=== PATIENT | female | born 1950 | race Caucasian/White ===

== ENCOUNTER 2017-12-21 00:21 | Emergency (ER) | payer MEDICARE, OTHER ==
[~2017-12-21] VITALS: Ht 165.1 cm; Wt 83.9 kg
[~2017-12-21 00:21] MED LIST: AMOX TR-K CLV1 EAC1 PO; ASPIR 8181 MG PO; ASPIRIN EC325 MG PO; BISOPROLOL FUMAR5 MG PO; CHLORTHALIDONE25 MG PO; CINNAMON500 MG PO; CLONAZEPAM0.5 MG PO; CLONAZEPAM1 MG PO; CRESTOR20 MG PO; CYCLOBENZAPRINE10 MG PO; CYMBALTA60 MG PO; FISH OIL 1,0001 EAC2 PO; FISH OIL300 MG PO; GABAPENTIN100 MG PO; GLUCOPHAGE1000 MG PO; HYDROCODON-ACE1 EAC8 PO; LIPITOR10 MG PO; LIPITOR20 MG PO; LISINOPRIL10 MG PO; LISINOPRIL5 MG PO; METOPROLOL TART25 MG PO; METRONIDAZOLE500 MG PO; MULTI-DAY VITA1 EACH PO; NITROSTAT0.4 MG SL; NORCO 7.5-3251 EACH PO; NOVOLOG100 UNITS/ SUB-Q; OXYCODONE HCL5 MG PO; SUPER B-50 COM1 EACH PO; SYNTHROID150 MCG PO; TRAZODONE HCL50 MG PO; VITAMIN D2000 UNI1 PO
[2017-12-21] MEDS ORDERED: CEPHALEXIN500 MG PO (01:47)
[2017-12-21] MEDS ORDERED: BACTRIM DS TAB1 EACH PO (01:47)
== END 2017-12-21 02:18 | disposition home or self-care (01) ==
LOC: ED 00:21
DX: L03.116 Cellulitis of left lower limb (principal); L03.115 Cellulitis of right lower limb; I25.2 Old myocardial infarction; E11.9 Type 2 diabetes mellitus without complications; Z87.891 Personal history of nicotine dependence; Z79.899 Other long term (current) drug therapy; Z79.84 Long term (current) use of oral hypoglycemic drugs
CPT/HCPCS: 99283

== ENCOUNTER 2018-12-01 10:19 | Emergency (ER) | payer MEDICARE, OTHER ==
[~2018-12-01] VITALS: Ht 165.1 cm; Wt 85.3 kg
[~2018-12-01 10:19] MED LIST changes: +ASPIRIN EC81 MG PO; +BACTRIM DS TAB1 EACH PO; +CEPHALEXIN500 MG PO; +LEVOTHYROXINE100 MCG PO
[2018-12-01] MEDS ORDERED: COLCRYS0.6 MG PO (11:01)
[2018-12-01] MEDS ORDERED: METOPROLOL SUCC25 MG PO (11:02)
[2018-12-01] MEDS ORDERED: PEPCID40 MG PO (13:10)
[2018-12-01] MEDS ORDERED: PREDNISONE50 MG PO (13:10)
[2018-12-01] MEDS ORDERED: ZYRTEC10 MG PO (13:10)
[2018-12-01] MEDS ORDERED: HYDROCHLOROTHIA25 MG PO (14:32)
== END 2018-12-01 15:28 | disposition home or self-care (01) ==
LOC: ED 10:19
DX: T78.3XXA Angioneurotic edema, initial encounter (principal); I25.2 Old myocardial infarction; E11.9 Type 2 diabetes mellitus without complications; Z87.891 Personal history of nicotine dependence; Z88.8 Allergy status to other drugs, medicaments and biological substances; Z79.899 Other long term (current) drug therapy
CPT/HCPCS: 71045; 80053; 85025; 94640; 96365; 96375; 99285-25; 99406; J1100

== ENCOUNTER 2019-07-06 21:15 | Emergency (ER) | payer MEDICARE, OTHER ==
[~2019-07-06] VITALS: Ht 165.1 cm; Wt 96.2 kg
[~2019-07-06 21:15] MED LIST changes: +COLCRYS0.6 MG PO; +HYDROCHLOROTHIA25 MG PO; +METOPROLOL SUCC25 MG PO; +PEPCID40 MG PO; +PREDNISONE50 MG PO; +ZYRTEC10 MG PO
[2019-07-07] MEDS ORDERED: KEFLEX500 MG PO (13:17)
== END 2019-07-06 23:15 | disposition left against medical advice (07) ==
LOC: ED 21:15
DX: Z53.21 Procedure and treatment not carried out due to patient leaving prior to being seen by health care provider (principal)

== ENCOUNTER 2019-07-07 11:16 | Emergency (ER) | payer MEDICARE, OTHER ==
[~2019-07-07] VITALS: Ht 165.1 cm; Wt 96.2 kg
--- OUTSIDE RECORDS SUMMARY | 2019-07-07 11:18 | XMS ---
PreManage Notification: MARYCRUZ RIVERO Security Analytical Technician Events No recent Security Events currently on file CRITERIA MET - [facility] - 2 Visits in 30 Days CARE PROVIDERS Cash Pino Treatment Current MD PHONE: Unknown Ray has no Care Guidelines for this patient. Danny VISIT COUNT (12 MO.) 4 [facility] TOTAL 4 NOTE: Visits indicate total known visits. ED/UCC VISIT TRACKING (12 MO.) 07/07/2019 11:16 [facility] [place] TYPE: Emergency COMPLAINT: - RIGHT LEG PAIN NON INJURY 07/06/2019 21:16 [facility] [place] TYPE: Emergency COMPLAINT: - RIGHT LEG SWELLING/ NO INJURY 01/13/2019 22:05 [facility] [place] TYPE: Emergency COMPLAINT: - R LEG BITE DIAGNOSES: - Other halfway (current) drug therapy - Exposure to other specified factors, initial encounter - Presence of aortocoronary bypass graft - Acquired absence of both cervix and uterus - Nicotine dependence, cigarettes, uncomplicated - Type 2 diabetes mellitus without complications - Unspecified open wound, right thigh, initial encounter - terminologist (current) use of aspirin - Chronic obstructive pulmonary disease, unspecified - Local infection of the skin and subcutaneous tissue, unspecified - senior care (current) use of oral hypoglycemic drugs - Allergy status to other drugs, medicaments and biological substances status - Old myocardial infarction 12/01/2018 10:[address] 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
[2019-07-07] MEDS ORDERED: KEFLEX500 MG PO (13:17)
== END 2019-07-07 13:25 | disposition home or self-care (01) ==
LOC: ED 11:16
DX: L03.115 Cellulitis of right lower limb (principal); E11.9 Type 2 diabetes mellitus without complications; I25.2 Old myocardial infarction; F17.200 Nicotine dependence, unspecified, uncomplicated; Z88.8 Allergy status to other drugs, medicaments and biological substances; Z79.82 Long term (current) use of aspirin; Z79.899 Other long term (current) drug therapy
CPT/HCPCS: 93971; 99283-25

== ENCOUNTER 2019-08-14 13:37 | Emergency (ER) | payer MEDICARE, OTHER ==
[~2019-08-14] VITALS: Ht 165.1 cm; Wt 96.2 kg
--- OUTSIDE RECORDS SUMMARY | ~2019-08-14 | XMS | Encounter Summary ---
Demographics + + + | Address | [address] | | | [place] [address] | + + + | Home Phone | | + + + | Preferred Language | Unknown | + + + | Marital Status | Single | + + + | Pentecostal Affiliation | 1028 | + + + | Race | Unknown | + + + | Ethnic Group | Unknown | + + + Author + + + | Author | [facility] | | | and [place] | + + + | Organization | [facility] | | | and [place] | + + + | Address | Unknown | + + + | Phone | Unavailable | + + + Support + + +---------+ + | Name | Relationship | Address | Phone | + + +---------+ + | Kia Andujarsy | ECON | Unknown | | + + +---------+ + | Pradeep Rodas | ECON | Unknown | Unavailable | + + +---------+ + | Radha Bansal | ECON | Unknown | | + + +---------+ + Care Team Providers + +------+ + | Care Communication Analyst Name | Role | Phone | + +------+ + | Marlys Villafana | PCP | | + +------+ + Encounter Details +--------+ + + + + | Date | Type | Department | Care Team | Description | +--------+ + + + + | 05/15/ | Orders Only | [facility] | Provider, | | | 2019 | | SYSTEM GENERIC OP | [address] | | | | | [address]VERSION [address] | [place]. | | | | | [address] [place], [place] | [place] [address] | | | | | [address] | | | | | | [phone] | | | +--------+ + + + + Social History + + + +--------+------+ | Tobacco Use | Types | Packs/Day | Years | Date | | | | | Used | | + + + +--------+------+ | Current Every Day | Cigarettes | 0.5 | 48 | | | Smoker | | | | | + + + +--------+------+ + +---+---+---+ | Smokeless Tobacco: | | | | | Current User | | | | + +---+---+---+ + + | Comments: Currently using E-cigarettes | + + + + +---------+ + | Alcohol Use | Drinks/We | oz/Week | Comments | | | ek | | | + + +---------+ + | No | | | rarely | + + +---------+ + + + + | Sex Assigned at | Date Recorded | | | | + + + | Not on file | | + + + + + + + | Job Start Date | Occupation | Industry | + + + + | Not on file | Not on file | Not on file | + + + + + + + + | Travel History | Travel Start | Travel End | + + + + + + | No recent travel history available. | + + documented as of this encounter Functional Status + + + + | Functional Status | Response | Date of Assessment | + + + + | Are you deaf or do you have serious | No | 06/19/2016 | | difficulty hearing? | | | + + + + | Are you blind or do you have serious | No | 06/19/2016 | | difficulty seeing, even when wearing | | | | glasses? | | | + + + + | Do you have serious difficulty walking or | No | 06/19/2016 | | climbing stairs? (5 years old or older) | | | + + + + | Do you have difficulty dressing or bathing? | No | 06/19/2016 | | (5 years old or older) | | | + + + + | Because of a physical, mental, or emotional | No | 06/19/2016 | | condition, do you have difficulty doing | | | | errands alone such as visiting a doctor's | | | | office or shopping? [15 years old or | | | | older)] | | | + + + + + + + + | Cognitive Status | Response | Date of Assessment | + + + + | Because of a physical, mental, or emotional | No | 06/19/2016 | | condition, do you have serious difficulty | | | | concentrating, remembering, or making | | | | decisions? (5 years old or older) | | | + + + + documented as of this encounter Plan of Treatment +--------+---------+ + + + | Date | Type | Specialty | Care Team | Description | +--------+---------+ + + + | 08/18/ | Office | Orthopedic Surgery | Rainer Wilson MD | | | 2019 | Visit | | [address] | | | | | | [place], | | | | | | [place] [address] | | | | | | [phone] | | | | | | | | +--------+---------+ + + + documented as of this encounter Visit Diagnoses Not on filedocumented in this encounter"
--- OUTSIDE RECORDS SUMMARY | ~2019-08-14 | XMS | Encounter Summary ---
Demographics + + + | Address | [address] | | | [place] [address] | + + + | Home Phone | | + + + | Preferred Language | Unknown | + + + | Marital Status | Single | + + + | Methodist Affiliation | 1028 | + + + | Race | Unknown | + + + | Ethnic Group | Unknown | + + + Author + + + | Author | [facility] | | | and [place] | + + + | Organization | [facility] | | | and [...] Team Providers + +------+ + | Care Sheep Or Calf Grader Name | Role | Phone | + +------+ + | Marlys Villafana | PCP | | + +------+ + Reason for Visit + + + | Reason | Comments | + + + | Surgery Appointment | | + + + Encounter Details +--------+ + + + + | Date | Type | Department | Care Team | Description | +--------+ + + + + | 08/11/ | Telephone | [facility] | Rainer Wilson MD | Surgery Appointment | | 2019 | | [facility] | [address] | | | | | ORTHOPEDIC SPINE | [place] | | | | | [address] | [place] [address] | | | | | [place] | [phone] | | | | | [address] | | | | | | [phone] | | | +--------+ + + + [...] | Rainer Wilson MD | | | 2018 | Visit | | [address] [facility] | | | | | | [place], | | | | | | [place] [address] | | | | | | [phone] | | | | | | | | +--------+---------+ + + + documented as of this encounter Visit Diagnoses Not on filedocumented in this encounter"
--- OUTSIDE RECORDS SUMMARY | ~2019-08-14 | XMS | Encounter Summary ---
Demographics + + + | Address | [address] | | | [place] [address] | + + + | Home Phone | | + + + | Preferred Language | Unknown | + + + | Marital Status | Single | + + + | Voodoo Affiliation | 1028 | + + + | Race | Unknown | + + + | Ethnic Group | Unknown | + + + Author + + + | Author | [facility] | | | and [place] | + + + | Organization | [facility] | | | [...] Team Providers + +------+ + | Care Shellfish Dredge Operator Name | Role | Phone | + +------+ + | Marlys Villafana | PCP | | + +------+ + Encounter Details +--------+ + + + + | Date | Type | Department | Care Team | Description | +--------+ + + + + | 05/15/ | Orders Only | [facility] | Provider, | | | 2019 | | SYSTEM GENERIC OP | [address] | | | | | [address] | [place]. | | | | | [address] [place], [place] | [place] [address] | | | | | [address] | | | | | | [phone] | | | +--------+ + + + [...] | 2019 | Visit | | [address] [address] | | | | | | [place], | | | | | | [place] [address] | | | | | | [phone] | | | | | | | | +--------+---------+ + + + documented as of this encounter Visit Diagnoses Not on filedocumented in this encounter"
--- OUTSIDE RECORDS SUMMARY | ~2019-08-14 | XMS | Clinical Summary ---
Demographics + + + | Address | [address] | | | [place] [address] | + + + | Home Phone | | + + + | Preferred Language | Unknown | + + + | Marital Status | Single | + + + | Latter-Day Affiliation | 1028 | + + + | Race | Unknown | + + + | Ethnic Group | Unknown | + + + Author + + + | Author | [facility] (Historical as of | | | 06-04-19) | + + + | Organization | [facility] (Historical as of | | | 06-04-19) | + + + | Address | Unknown | + + + | Phone | Unavailable | + + + Support + + +---------+ + | Name | Relationship | Address | Phone | + + +---------+ + | Radha Bansal | ECON | Unknown | | + + +---------+ + Care Team Providers + +------+ + | Care Form Grader Operator Name | Role | Phone | + +------+ + | Marlys Villafana PA-C | PP | | + +------+ + Allergies No Known Allergies Current Medications + + +-------+---------+------+------+-------+ | Prescription | Sig. | Disp. | Refills | Star | End | Statu | | | | | | t | Date | s | | | | | | Date | | | + + +-------+---------+------+------+-------+ | chlorthalidone | Take 25 mg by mouth | | | | | Activ | | (HYGROTEN) 25 MG | daily. | | | | | e | | tablet | | | | | | | + + +-------+---------+------+------+-------+ | levothyroxine | Take 125 mcg by | | | | | Activ | | (SYNTHROID, | mouth every morning | | | | | e | | LEVOTHROID) 150 MCG | before breakfast. | | | | | | | tablet | | | | | | | + + +-------+---------+------+------+-------+ | DULoxetine | Take 60 mg by mouth | | | | | Activ | | (CYMBALTA) [address] | daily. | | | | | e | | capsule | | | | | | | + + +-------+---------+------+------+-------+ | metformin | Take 1,000 mg by | | | | | Activ | | (GLUCOPHAGE) 1000 MG | mouth 2 (two) times | | | | | e | | tablet | daily with meals. | | | | | | + + +-------+---------+------+------+-------+ | b complex vitamins | Take 1 capsule by | | | | | Activ | | capsule | mouth daily. | | | | | e | + + +-------+---------+------+------+-------+ | Multiple Vitamin | Take 1 tablet by | | | | | Activ | | (MULTIVITAMIN) | mouth daily. | | | | | e | | tablet | | | | | | | + + +-------+---------+------+------+-------+ | albuterol | Take 2.5 mg by | | | | | Activ | | (PROVENTIL) (2.5 | nebulization every 6 | | | | | e | | MG/3ML) 0.083% | (six) hours as | | | | | | | nebulizer solution | needed. | | | | | | + + +-------+---------+------+------+-------+ | Cinnamon 500 MG | Take 500 mg by mouth | | | | | Activ | | capsule | daily. | | | | | e | + + +-------+---------+------+------+-------+ | clonazePAM | Take 0.5 mg by mouth | | | | | Activ | | (KLONOPIN) 0.5 MG | 2 (two) times daily | | | | | e | | tablet | as needed. | | | | | | + + +-------+---------+------+------+-------+ | nitroGLYCERIN | Place 0.4 mg under | | | | | Activ | | (NITROSTAT) 0.4 MG | the tongue every 5 | | | | | e | | SL tablet | (five) minutes as | | | | | | | | needed. | | | | | | + + +-------+---------+------+------+-------+ | traZODone | Take 50 mg by mouth | | | | | Activ | | (DESYREL) 50 MG | nightly. | | | | | e | | tablet | | | | | | | + + +-------+---------+------+------+-------+ | gabapentin | Take 900 mg by mouth | | | | | Activ | | (NEURONTIN) 300 MG | 2 (two) times | | | | | e | | capsuleIndications: | daily. | | | | | | | Neuralgia, Pain | | | | | | | + + +-------+---------+------+------+-------+ | aspirin EC 81 MG | Take 81 mg by mouth | | | | | Activ | | EC tablet | daily with | | | | | e | | | breakfast. | | | | | | + + +-------+---------+------+------+-------+ | Cholecalciferol | Take 2,000 Units by | | | | | Activ | | (VITAMIN D3) 2000 | mouth. | | | | | e | | units TABS | | | | | | | + + +-------+---------+------+------+-------+ | fish oil omega-3 | Take 1 g by mouth | | | | | Activ | | fatty acids 1000 MG | daily. | | | | | e | | capsule | | | | | | | + + +-------+---------+------+------+-------+ | atorvastatin | TK 1 T PO QD | | 0 | 09/2 | | Activ | | (LIPITOR) 20 MG | | | | 5/20 | | e | | tablet | | | | 18 | | | + + +-------+---------+------+------+-------+ | cetirizine | TK 1 T PO QD | | 0 | 02/1 | | Activ | | (ZYRTEC) 10 MG | | | | 3/20 | | e | | tablet | | | | 19 | | | + + +-------+---------+------+------+-------+ | famotidine | TK 1 T PO QD | | 0 | 02/1 | | Activ | | (PEPCID) 40 MG | | | | 3/20 | | e | | tablet | | | | 19 | | | + + +-------+---------+------+------+-------+ | | TK 1 T PO QD | | 3 | 03/0 | | Activ | | hydrochlorothiazide | | | | 6/20 | | e | | (HYDRODIURIL) 25 MG | | | | 19 | | | | tablet | | | | | | | + + +-------+---------+------+------+-------+ | | | | 0 | 04/2 | | Activ | | HYDROcodone-acetamin | | | | 6/20 | | e | | ophen (NORCO) | | | | 19 | | | | 7.5-325 MG per | | | | | | | | tablet | | | | | | | + + +-------+---------+------+------+-------+ | metoprolol | TK 1 T PO QD | | 3 | 05/0 | | Activ | | (TOPROL-XL) 50 MG 24 | | | | 7/20 | | e | | hr tablet | | | | 19 | | | + + +-------+---------+------+------+-------+ | oxyCODONE | Take 5-10 mg by | | | 12/2 | | Activ | | (ROXICODONE) 5 MG | mouth. | | | 8/20 | | e | | immediate release | | | | 16 | | | | tablet | | | | | | | + + +-------+---------+------+------+-------+ Active Problems + + + | Problem | Noted Date | + + + | Postlaminectomy syndrome, lumbar region | 06/22/2018 | + + + + + | Overview: Added automatically from request for surgery [id number] | + + + + + | Lumbosacral radiculopathy | 06/22/2018 | + + + + + | Overview: Added automatically from request for surgery [id number] | + + + + + | Lumbar radiculopathy | 05/25/2018 | + + + + + | Overview: Added automatically from request for surgery [id number] | + + + + + | Lumbar postlaminectomy syndrome | 05/25/2018 | + + + + + | Overview: Added automatically from request for surgery [id number] | + + + + + | Radiculopathy, lumbosacral region | 05/25/2018 | + + + + + | Overview: Added automatically from request for surgery [id number] | + + + + + | Degenerative lumbar spinal stenosis | 01/29/2018 | + + + | Pain in lower extremity due to sciatica | 06/11/2016 | + + + | CAD (coronary artery disease) | 12/23/2013 | + + + | Tobacco abuse | 12/23/2013 | + + + | Jaw pain | 12/23/2013 | + + + | Aspiration pneumonia (HCC) | 04/03/2013 | + + + | C. difficile colitis | 04/03/2013 | + + + | S/P CABG x 5 | 04/02/2013 | + + + | Emily - Márquez tear | 04/02/2013 | + + + | Methamphetamine abuse (HCC) | 03/30/2013 | + + + | NSTEMI (non-ST elevated myocardial infarction) | 03/28/2013 | + + + | Diabetes mellitus (HCC) | 03/28/2013 | + + + | Thyroid disease | 03/28/2013 | + + + | Renal insufficiency | 03/28/2013 | + + + | CAD (coronary artery disease), tolowa dee-ni' coronary artery | 03/28/2013 | + + + | Atherosclerosis of abdominal aorta (HCC) | 03/28/2013 | + + + | PVD (peripheral vascular disease) | 03/28/2013 | + + + | OLVIN (acute kidney injury) | 03/28/2013 | + + + Resolved Problems + + + + | Problem | Noted | Resolved | | | Date | Date | + + + + | Pneumonia | 04/05/20 | | | | 13 | 3 | + + + + | Nvdms-rn-wsgkygk respiratory failure | 03/30/20 | | | | 13 | 3 | + + + + | Arrhythmia | 03/28/20 | | | | 13 | 3 | + + + + | Pulmonary edema | 03/28/20 | | | | 13 | 3 | + + + + | Hypokalemia | 03/28/20 | | | | 13 | 3 | + + + + | Hypomagnesemia | 03/28/20 | | | | 13 | 3 | + + + + Immunizations + + + + | Name | Dates Previously Given | Next Due | + + + + | Influenza, PF | 08/02/2013 | | | Recombinant, | | | | Trivalent (Flublok) | | | + + + + | Pneumococcal | 07/19/2011 | | | Polysaccharide | | | | 23-valent | | | + + + + Family History + + +------+ + | Medical History | Relation | Name | Comments | + + +------+ + | Colon polyps | Brother | | | + + +------+ + | Heart disease | Brother | | | + + +------+ + | Alcohol abuse | Father | | | + + +------+ + | Cancer | Father | | protate | + + +------+ + | Colon polyps | Father | | | + + +------+ + | Heart attack | Father | | | + + +------+ + | Heart disease | Father | | | + + +------+ + | Heart disease | Mother | | | + + +------+ + | Alcohol abuse | Sister | | | + + +------+ + | Malig hypertherm | Neg Hx | | | + + +------+ + + +------+ + + | Relation | Name | Status | Comments | + +------+ + + | Brother | | Alive | | + +------+ + + | Father | | | | + +------+ + + | Mother | | | | + +------+ + + | Sister | | | | + +------+ + + Social History + +-------+ +--------+------+ | Tobacco Use | Types | Packs/Day | Years | Date | | | | | Used | | + +-------+ +--------+------+ | Current Every Day | | 0.5 | 40 | | | Smoker | | | | | + +-------+ +--------+------+ + +---+---+---+ | Smokeless Tobacco: | | | | | Never Used | | | | + +---+---+---+ + + | Tobacco Cessation: Ready to Quit: No | + + + + +---------+ + | Alcohol Use | Drinks/We | oz/Week | Comments | | | ek | | | + + +---------+ + | No | | | | + + +---------+ + + + + | Sex Assigned at | Date Recorded | | | | + + + | Not on file | | + + + Last Filed Vital Signs + + + + | Vital Sign | Reading | Time Taken | + + + + | Blood Pressure | 133/79 | 04/13/2019 3:11 PM PDT | + + + + | Pulse | 94 | 04/13/2019 3:11 PM PDT | + + + + | Temperature | 36.8 C (98.2 F) | 07/21/2018 1:51 PM PDT | + + + + | Respiratory Rate | 20 | 07/21/2018 2:15 PM PDT | + + + + | Oxygen Saturation | 95% | 04/13/2019 3:11 PM PDT | + + + + | Inhaled Oxygen | - | - | | Concentration | | | + + + + | Weight | 92.2 kg (203 lb 4.2 | 04/13/2019 3:11 PM PDT | | | oz) | | + + + + | Height | 165.1 cm (5' 5") | 04/13/2019 3:11 PM PDT | + + + + | Body Mass Index | 33.82 | 04/13/2019 3:11 PM PDT | + + + + Plan of Treatment + + + + + | Health Maintenance | Due Date | Last Done | Comments | + + + + + | Diabetic Eye Exam | | | | | | 9 | | | + + + + + | Diabetic Foot Exam | | | | | | 9 | | | + + + + + | Microalbumin | | | | | Screening | 9 | | | + + + + + | Vaccine: | | | | | Dtap/Tdap/Td (1 - | 8 | | | | Tdap) | | | | + + + + + | Breast Cancer | | | | | Screening | 9 | | | | (Mammogram) | | | | + + + + + | Colon Cancer | | | | | Screening | 9 | | | | (Colonoscopy) | | | | + + + + + | Vaccine: Zoster (1 | | | | | of 2) | 9 | | | + + + + + | DEXA SCAN SCREENING | | | | | | 4 | | | + + + + + | Vaccine: | | 07/19/2011 | | | Pneumococcal 65+ | 4 | | | | Low/Medium Risk (1 | | | | | of 2 - PCV13) | | | | + + + + + | Hemoglobin A1c | | 12/24/2013, 04/01/2013, | | | | 4 | 03/29/2013 | | + + + + + | Vaccine: Influenza | | 08/02/2013 | | | (#1) | 9 | | | + + + + + Implants + +------+-------+ +--------+--------+--------+ | Implanted | Type | Area | Manufacture | Device | Expira | Model | | | | | r | | tion | / | | | | | | Identi | Date | Serial | | | | | | fier | | / Lot | + +------+-------+ +--------+--------+--------+ | Pacing Wire Dual | | N/A: | | | 06/18/ | 030-00 | | 030-005 - | | Heart | | | 2016 | 5 | | [id number]: Qty: 1 on | | | | | | / | | 03/30/2013 by Vickie, | | | | | | 155 | | MD Angel | | | | | | | + +------+-------+ +--------+--------+--------+ | Pacing Wire Dual | | N/A: | | | 10/18/ | 030-00 | | 030-005 - | | Heart | | | 2016 | 5 | | [id number]: Qty: 1 on | | | | | | / | | 03/30/2013 by Vickie, | | | | | | | | MD Angel | | | | | | | + +------+-------+ +--------+--------+--------+ | Stim Nrv Lead Octrode 60cm - | | N/A: | [facility] | | 02/10/ | 3086 | | [id number]: Qty: 1 on | | Back | MEDICAL - | | 2019 | /[id number] | | 07/21/2018 by Shahrzad, | | | PEDRO | | | 614 | | DO Atif | | | | | | /NA | + +------+-------+ +--------+--------+--------+ | Stim Nrv Lead Octrode 60cm - | | N/A: | [facility] | | 12/01/ | [id number] | | [id number]: Qty: 1 on | | Back | MEDICAL - | | 2020 | S | | 07/21/2018 by Shahrzad, | | | PEDRO | | | /[id number] | | DO Atif | | | | | | 325 | | | | | | | | /NA | + +------+-------+ +--------+--------+--------+ Results Not on filefrom Last 3 Months Insurance + +--------+ +--------+-------+ + | Payer | Benefi | Subscriber | Type | Phone | Address | | | t Plan | ID | | | | | | / | | | | | | | Group | | | | | + +--------+ +--------+-------+ + | MEDICARE | MEDICA | [id number] | | | [address] | | | RE | | | | [place] [address] | | | IP-OP | | | | | + +--------+ +--------+-------+ + | [employer] | [employer] | [id number] | Indemn | | | | | AMERIC | | ity | | | | | AN | | | | | + +--------+ +--------+-------+ + + +--------+ +--------+ + + | Guarantor Name | Accoun | Relation to | Date | Phone | Billing Address | | | t Type | Patient | of | | | | | | | | | | + +--------+ +--------+ + + | ANTONIA ALMANZA | Person | Self [birth year] Home: | [address] | | | al/Fam | | 1950 | [phone] | [place] | | | nasim | | | [phone] | [phone] | + +--------+ +--------+ + +
--- OUTSIDE RECORDS SUMMARY | ~2019-08-14 | XMS | Encounter Summary ---
Demographics + + + | Address | [address] | | | [place] [address] | + + + | Home Phone | | + + + | Preferred Language | Unknown | + + + | Marital Status | Single | + + + | Hinduism Affiliation | 1028 | + + + | Race | Unknown | + + + | Ethnic Group | Unknown | + + + Author + + + | Author | [facility] | | | and [place] | + + + | Organization | [facility] | | | [...] Team Providers + +------+ + | Care Compliance Attorney Name | Role | Phone | + [...] 2019 | | [facility] | [address] | | | | | [facility] | [place] | | | | | [address] | [place] [address] | | | | | [place] | [phone] | | | | | [address] | | | | | | [phone] | | | +--------+ + + + [...] | 2018 | Visit | | [address] [facility] | | | | | | [place], | | | | | | [place] [address] | | | | | | [phone] | | | | | | | | +--------+---------+ + + + documented as of this encounter Visit Diagnoses Not on filedocumented in this encounter"
--- OUTSIDE RECORDS SUMMARY | ~2019-08-14 | XMS | Clinical Summary ---
Demographics + + + | Address | [address] | | | [place] [address] | + + + | Home Phone | | + + + | Preferred Language | Unknown | + + + | Marital Status | Single | + + + | Buddhism Affiliation | 1028 | + + + | Race | Unknown | + + + | Ethnic Group | Unknown | + + + Author + + + | Author | [facility] | | | and [place] | + + + | Organization | [facility] | | | and [...] Team Providers + +------+ + | [facility] [place] Mail [facility] Name | Role | Phone | + +------+ + | Marlys Villafana | PCP | | + +------+ + Allergies No Known Allergies Medications + + + +---------+------+------+-------+ | Medication | Sig | Dispensed | Refills | Star | End | Statu | | | | | | t | Date | s | | | | | | Date | | | + + + +---------+------+------+-------+ | Cinnamon 500 MG | Take 500 mg by mouth | | 0 | 09/1 | | Activ | | CAPS | Daily. | | | 320 | | e | | | | | | 12 | | | + + + +---------+------+------+-------+ | DULoxetine | Take 60 mg by mouth | | 0 | 09/1 | | Activ | | (CYMBALTA) 60 MG | Daily. | | | 3/20 | | e | | capsule | | | | 12 | | | + + + +---------+------+------+-------+ | chlorthalidone 25 | Take 25 mg by mouth | | 0 | 09/1 | | Activ | | mg tablet | Daily. | | | 3/20 | | e | | | | | | 12 | | | + + + +---------+------+------+-------+ | multivitamin | daily | | 0 | 09/1 | | Activ | | (THERAGRAN) per | | | | 3/20 | | e | | tablet | | | | 12 | | | + + + +---------+------+------+-------+ | Berkley-3 Fatty | take 2 capsules | | 0 | 09/1 | | Activ | | Acids (FISH OIL | daily | | | 3/20 | | e | | CONCENTRATE) 1000 MG | | | | 12 | | | | CAPS | | | | | | | + + + +---------+------+------+-------+ | Cholecalciferol | Take 2,000 Units by | | 0 | 09/1 | | Activ | | (VITAMIN D) 2000 | mouth Daily. | | | 3/20 | | e | | UNITS CAPS | | | | 12 | | | + + + +---------+------+------+-------+ | metFORMIN | Take 1,000 mg by | | 0 | 06/19 | | Activ | | (GLUCOPHAGE) 500 mg | mouth 2 times daily | | | 3/ | | e | | tablet | (with breakfast & | | | 12 | | | | | dinner). | | | | | | + + + +---------+------+------+-------+ | traZODone | Take 50 mg by mouth | | 0 | / | | Activ | | (DESYREL) 50 mg | nightly. | | | 0/20 | | e | | tablet | | | | 13 | | | + + + +---------+------+------+-------+ | bisoprolol | Take 2.5 mg by mouth | | 0 | / | | Activ | | (ZEBETA) 5 mg tablet | 2 times daily. | | | / | | e | | | | | | 13 | | | + + + +---------+------+------+-------+ | atorvaSTATin | Take 20 mg by mouth | | 0 | / | | Activ | | (LIPITOR) 20 mg | nightly. | | | 0/20 | | e | | tablet | | | | 13 | | | + + + +---------+------+------+-------+ | nitroglycerin | Place 0.4 mg under | | 0 | | | Activ | | (NITROSTAT) 0.4 mg | the tongue every 5 | | | | | e | | SL tablet | minutes as needed. | | | | | | + + + +---------+------+------+-------+ | lisinopril | Take 5 mg by mouth | | 0 | 09/1 | | Activ | | (PRINIVIL, ZESTRIL) | Daily. | | | 3/20 | | e | | 10 mg tablet | | | | 12 | | | + + + +---------+------+------+-------+ | levothyroxine | Take 100 mcg by | | 0 | 09/1 | | Activ | | (SYNTHROID) 150 mcg | mouth every morning | | | 3/20 | | e | | tablet | (before breakfast). | | | 12 | | | + + + +---------+------+------+-------+ | B Complex CAPS | Daily. | | 0 | 09/1 | | Activ | | | | | | 3/20 | | e | | | | | | 12 | | | + + + +---------+------+------+-------+ | albuterol | Inhale 2 puffs into | 1 | 0 | 01/1 | | Activ | | (VENTOLIN HFA) 90 | the lungs every 4 | Inhaler | | 0/20 | | e | | mcg/puff | hours as needed for | | | 14 | | | | inhalerIndications: | Shortness of Breath. | | | | | | | COPD (chronic | | | | | | | | obstructive | | | | | | | | pulmonary disease) | | | | | | | | (HCC) | | | | | | | + + + +---------+------+------+-------+ | clonazePAM | Take 1 mg by mouth | | 0 | 09/1 | | Activ | | (KLONOPIN) 0.5 mg | nightly as needed. | | | 3/20 | | e | | tablet | | | | 12 | | | + + + +---------+------+------+-------+ | gabapentin | Take 600 mg by mouth | | 0 | 09/1 | | Activ | | (NEURONTIN) 300 mg | 3 times daily. 1 | | | 0/20 | | e | | capsule | pill in the am, 1 | | | 14 | | | | | pill at noon, and 2 | | | | | | | | pills at night. | | | | | | + + + +---------+------+------+-------+ | lactulose 10 g/15 | Take 30 mLs by mouth | 240 mL | 2 | 09/0 | | Activ | | mL solution | 2 times daily. For | | | 1/20 | | e | | | constipation | | | 16 | | | + + + +---------+------+------+-------+ | diazePAM (VALIUM) | Take 1 tablet by | 75 | 0 | 12/0 | | Activ | | 5 mg tablet | mouth every 6 hours | tablet | | 3/20 | | e | | | as needed. | | | 16 | | | + + + +---------+------+------+-------+ | | Take 1-2 tablets by | 120 | 0 | 12/2 | | Activ | | HYDROcodone-acetamin | mouth every 6 hours | tablet | | 3/20 | | e | | ophen (NORCO) 10-325 | as needed for Pain. | | | 16 | | | | mg per tablet | | | | | | | + + + +---------+------+------+-------+ | oxyCODONE | Take 1-2 tablets by | 120 | 0 | 12/2 | | Activ | | (ROXICODONE) 5 mg | mouth every 6 hours | tablet | | 8/20 | | e | | tablet | as needed for Pain. | | | 16 | | | + + + +---------+------+------+-------+ | aspirin 81 mg EC | Take 81 mg by mouth | | 0 | | | Activ | | tablet | daily with | | | | | e | | | breakfast. | | | | | | + + + +---------+------+------+-------+ | cetirizine | TK 1 T PO QD | | 0 | 02/1 | | Activ | | (ZYRTEC) 10 mg | | | | 3/20 | | e | | tablet | | | | 19 | | | + + + +---------+------+------+-------+ | famotidine | TK 1 T PO QD | | 0 | 02/1 | | Activ | | (PEPCID) 40 MG | | | | 3/20 | | e | | tablet | | | | 19 | | | + + + +---------+------+------+-------+ | | TK 1 T PO QD | | 0 | 03/0 | | Activ | | hydroCHLOROthiazide | | | | 6/20 | | e | | 25 mg tablet | | | | 19 | | | + + + +---------+------+------+-------+ | metoprolol | TK 1 T PO QD | | 0 | 05/0 | | Activ | | succinate | | | | 7/20 | | e | | (TOPROL-XL) 50 mg 24 | | | | 19 | | | | hr tablet | | | | | | | + + + +---------+------+------+-------+ | albuterol 2.5 mg/3 | Take 2.5 mg by | | 0 | | | Activ | | mL nebulizer | nebulization every 6 | | | | | e | | solution | (six) hours as | | | | | | | | needed. | | | | | | + + + +---------+------+------+-------+ | cholecalciferol | Take 2,000 Units by | | 0 | | | Activ | | (CHOLECALCIFEROL) | mouth. | | | | | e | | 2000 units TABS | | | | | | | + + + +---------+------+------+-------+ | | | | 0 | 04/2 | | Activ | | HYDROcodone-acetamin | | | | 6/20 | | e | | ophen (NORCO) | | | | 19 | | | | 7.5-325 mg per | | | | | | | | tablet | | | | | | | + + + +---------+------+------+-------+ | metFORMIN | Take 1,000 mg by | | 0 | | | Activ | | (GLUCOPHAGE) 1000 MG | mouth 2 (two) times | | | | | e | | tablet | daily with meals. | | | | | | + + + +---------+------+------+-------+ | Multiple Vitamin | Take 1 tablet by | | 0 | | | Activ | | (MULTIVITAMIN) | mouth daily. | | | | | e | | tablet | | | | | | | + + + +---------+------+------+-------+ Active Problems + + + | Problem | Noted Date | + + + | Postlaminectomy syndrome of lumbar region | 05/25/2018 | + + + + + | Overview: Overview: | | Added automatically from request for surgery [id number] | | Overview: | | Added automatically from request for surgery [id number] | + + + + + | Radiculopathy, lumbosacral region | 05/25/2018 | + + + + + | Overview: Overview: | | Added automatically from request for surgery [id number] | | Overview: | | Added automatically from request for surgery [id number] | + + + + + | Degenerative lumbar spinal stenosis | 01/29/2018 | + + + | Pain in lower extremity due to sciatica | 06/11/2016 | + + + | Unstable angina | 04/03/2016 | + + + | S/P CABG x 5 | 04/03/2016 | + + + | Jaw pain | 12/23/2013 | + + + | Tobacco abuse | 12/23/2013 | + + + | Nocturnal oxygen desaturation | 12/06/2013 | + + + | Aspiration pneumonia | 04/03/2013 | + + + | C. difficile colitis | 04/03/2013 | + + + | Emily-Márquez tear | 04/02/2013 | + + + | Methamphetamine abuse | 03/30/2013 | + + + | OLVIN (acute kidney injury) | 03/28/2013 | + + + | Atherosclerosis of abdominal aorta | 03/28/2013 | + + + | CAD (coronary artery disease), [place] coronary artery | 03/28/2013 | + + + | NSTEMI (non-ST elevated myocardial infarction) | 03/28/2013 | + + + | Renal insufficiency syndrome | 03/28/2013 | + + + | Thyroid disease | 03/28/2013 | + + + | PVD (peripheral vascular disease) | 03/28/2013 | + + + | BURSITIS, HIP | 06/25/2012 | + + + | SHOULDER PAIN | | + + + | KNEE PAIN | | + + + | PAIN IN SOFT TISSUES OF LIMB | | + + + | DIABETES MELLITUS | | + + + | DEGENERATIVE DISC DISEASE, LUMBAR SPINE | | + + + | BACK PAIN, LUMBAR | | + + + | OSTEOARTHRITIS, LUMBOSACRAL SPINE | | + + + | OSTEOARTHRITIS, KNEE | | + + + | LUMBAR RADICULOPATHY | | + + + | CHRONIC KIDNEY DISEASE UNSPECIFIED | | + + + + + | Overview: ICD-10 Record update | + + + +---+ | BACK PAIN | | + +---+ | DEGENERATIVE JOINT DISEASE | | + +---+ | SPINAL STENOSIS, LUMBAR | | + +---+ | NICOTINE ADDICTION | | + +---+ | DIABETIC PERIPHERAL NEUROPATHY | | + +---+ | NATALI (obstructive sleep apnea) | | + +---+ | ASCVD (arteriosclerotic cardiovascular disease) | | + +---+ | Atrial fibrillation | | + +---+ | HBP (high blood pressure) | | + +---+ | Anxiety | | + +---+ | Hypercholesterolemia | | + +---+ | Diabetic neuropathy | | + +---+ | Hypothyroidism | | + +---+ | Drug abuse | | + +---+ + + | Overview: cocaine and methamphetamine | + + + +---+ | Cigarette smoker | | + +---+ | COPD (chronic obstructive pulmonary disease) | | + +---+ | Heart attack | | + +---+ | Diverticulitis | | + +---+ | Arthritis | | + +---+ | Sleep apnea | | + +---+ | Neuropathy | | + +---+ | Depression | | + +---+ Encounters +--------+ + + + + | Date | Type | Specialty | Care Team | Description | +--------+ + + + + | 08/11/ | Telephone | Orthopedic Surgery | Rainer Wilson MD | Surgery Appointment | | 2018 | | | | | +--------+ + + + + | 05/15/ | Orders Only | | Provider, | | | 2018 | | | MD Chivo | | +--------+ + + + + from Last 3 Months Immunizations + + + + | Name | Dates Previously Given | Next Due | + + + + | INFLUENZA PF 17 Y OR | 08/02/2013 | | | >,TRIVALENT | | | | RECOMBINANT | | | + + + + | PNEUMOCOCCAL | 07/19/2011 | | | POLYSACCHARIDE | | | | 23-VALENT (PPSV23) | | | + + + + Family History + + +------+ + | Medical History | Relation | Name | Comments | + + +------+ + | Arthritis | Brother | | | + + +------+ + | Coronary artery | Brother | | | | disease | | | | + + +------+ + | Colon polyps | Brother | | | + + +------+ + | Heart disease | Brother | | | + + +------+ + | Hypertension | Brother | | | + + +------+ + | Seizures | Brother | | | + + +------+ + | Alcohol abuse | Father | | | + + +------+ + | COPD | Father | | | + + +------+ + | Cancer | Father | | protate | + + +------+ + | Colon polyps | Father | | | + + +------+ + | Dementia | Father | | | + + +------+ + | Heart attack | Father | | | + + +------+ + | Heart disease | Father | | | + + +------+ + | Prostate cancer | Father | | | + + +------+ + | Sleep apnea | Father | | | + + +------+ + | Arthritis | Mother | | | + + +------+ + | Heart disease | Mother | | | + + +------+ + | Hypertension | Mother | | | + + +------+ + | Heart disease | Other | | Uncle | + + +------+ + | Other (see comment) | Other | | back or neck problems: Mother and Sister | + + +------+ + | Alcohol abuse | Sister | | | + + +------+ + | Bipolar disorder | Sister | | | + + +------+ + | Depression | Sister | | | + + +------+ + | Alcohol abuse | Sister | | | + + +------+ + | Arthritis | Sister | | Rheumatoid arthritis | + + +------+ + | Malig hypertherm | Neg Hx | | | + + +------+ + + +------+ + + | Relation | Name | Status | Comments | + +------+ + + | Brother | | Alive | | + +------+ + + | Brother | | Alive | | + +------+ + + | Brother | | | | + +------+ + + | Father | | | | + +------+ + + | Father | | | | + +------+ + + | Mother | | | | + +------+ + + | Mother | | | | + +------+ + + | Other | | | | + +------+ + + | Sister | | | | + +------+ + + | Sister | | | | + +------+ + + | Sister | | | | + +------+ + + | Sister | | Alive | | + +------+ + + Social History + + + [...] recent travel history available. | + + Last Filed Vital Signs + + + + | Vital Sign | Reading | Time Taken | + + + + | Blood Pressure | 133/79 | 04/13/20191511 PDT | + + + + | Pulse | 94 | 04/13/20191511 PDT | + + + + | Temperature | 36.8 C (98.2 F) | 07/22/20181119 PDT | + + + + | Respiratory Rate | 20 | 07/22/20181119 PDT | + + + + | Oxygen Saturation | 85% | 06/19/2016805 PDT | + + + + | Inhaled Oxygen | - | - | | Concentration | | | + + + + | Weight | 92.2 kg (203 lb 4.2 | 04/13/20191511 PDT | | | oz) | | + + + + | Height | 165.1 cm (5' 5") | 04/13/20191511 PDT | + + + + | Body Mass Index | 33.82 | 04/13/20191511 PDT | + + + + Plan of Treatment +--------+---------+ + + + | Date | Type | Specialty | Care Team | Description | +--------+---------+ + + + | 08/18/ | Office | Orthopedic Surgery | Rainer Wilson MD | | | 2019 | Visit | | [address] [facility] | | | | | | [place], | | | | | | [place] [address] | | | | | | [phone] | | | | | | | | +--------+---------+ + + + + + + + + | Health Maintenance | Due Date | Last Done | Comments | + + + + + | Hepatitis C | | | | | Screening | 9 | | | + + + + + | Diabetic Eye Exam | | | | | | 7 | | | + + + + + | Diabetic Foot Exam | | | | | | 7 | | | + + + + + | Vaccine: | | | | | Dtap/Tdap/Td (1 - | 8 | | | | Tdap) | | | | + + + + + | Colorectal Cancer | | | | | Screening | 9 | | | | (Colonoscopy) | | | | + + + + + | Vaccine: Zoster (1 | | | | | of 2) | 9 | | | + + + + + | Breast Cancer | | 04/06/2009 | | | Screening | 1 | | | + + + + + | Vaccine: | | 07/19/2011 | | | Pneumococcal 65+ | 4 | | | | Low/Medium Risk (1 | | | | | of 2 - PCV13) | | | | + + + + + | Hemoglobin A1c | | 12/24/2013 | | | Screening | 4 | | | + + + + + | Adult Annual | | | | | Wellness Visit | 9 | | | + + + + + | Statin Therapy | | | | | (optimal intensity) | 9 | | | + + + + + | Vaccine: Influenza | | 08/02/2013 | | | (#1) | 9 | | | + + + + + Implants + +--------+--------+ +--------+--------+--------+ | Implanted | Type | Area | Manufacture | Device | Shelf | Model | | | | | r | | Expira | / | | | | | | Identi | tion | Serial | | | | | | fier | Date | / Lot | + +--------+--------+ +--------+--------+--------+ | Chips Can 5cc 1.7-10mm Fd - | Bone | N/A: | MUSCULOSKEL | | 01/08/ | [id number] | | [id number]: Qty: 1 | | Spine | ETAL | | 2020 | | | on 06/16/2016 by Levon, | | Lumbar | TRANSPLA - | | | /[id number] | | Bennett Osei DO | | | MUSC | | | 7-039 | | | | | | | | / | + +--------+--------+ +--------+--------+--------+ | Imp Spn Spcr Cpstn 7x22mm - | Generi | N/A: | SOFAMOR | | 03/29/ | [id number] | | [id number]: Qty: 1 on | c | Spine | DANEK - DIV | | 2022 | 2 / | | 06/16/2016 by Bennett Dos Santos | | Lumbar | MEDTRONIC | | | /[id number] | | DO Farnaz | | | - SFDK | | | 686 | + +--------+--------+ +--------+--------+--------+ | Chris Sextant Ccm [id number] - | Generi | N/A: | MEDTRONIC - | | | [id number] | | [id number]: Qty: 2 on | c | Spine | MEDT | | | 5100 / | | 06/16/2016 by Bennett Dos Santos | | Lumbar | | | | / | | DO Farnaz | | | | | | | + +--------+--------+ +--------+--------+--------+ | Graft Infuse Bone Kit Xxs - | Graft | N/A: | SOFAMOR | | 05/18/ | [id number] | | [id number]: Qty: 1 on | | Spine | DANEK - DIV | | 2017 | 0 / | | 06/16/2016 by Bennett Dos Santos | | Lumbar | MEDTRONIC | | | /[id number] | | DO Farnaz | | | - SFDK | | | [id number] | + +--------+--------+ +--------+--------+--------+ | Putty Elio 5cc Dbm - | Graft | N/A: | [employer]IC - | | 02/18/ | 48547 | | [id number]: Qty: 1 | | Spine | MEDT | | 2019 | /[id number] | | on 06/16/2016 by Levon, | | Lumbar | | | | 7-035 | | Bennett Osei DO | | | | | | / | + +--------+--------+ +--------+--------+--------+ | Screw 4.75 Xtb Jonas Mas | Screw | N/A: | MEDTR[employer]IC - | | | [id number] | | 6.5x60 - [id number]: | | Spine | MEDT | | | 49641 | | Qty: 1 on 06/16/2016 by | | Lumbar | | | | / / | | Bennett Dos Santos DO | | | | | | | + +--------+--------+ +--------+--------+--------+ | Screw 4.75 Xtb Jonas Mas | Screw | N/A: | [employer] - | | | 014175 | | 6.5x55 - [id number]: | | Spine | MEDT | | | 69311 | | Qty: 1 on 06/16/2016 by | | Lumbar | | | | / / | | Bennett Dos Santos DO | | | | | | | + +--------+--------+ +--------+--------+--------+ | Screw 4.75 Xtb Jonas Mas | Screw | N/A: | [employer] - | | | 435279 | | 7.5x60 - [id number]: | | Spine | MEDT | | | 56515 | | Qty: 1 on 06/16/2016 by | | Lumbar | | | | / / | | Bennett Dos Santos DO | | | | | | | + +--------+--------+ +--------+--------+--------+ | Screw 4.75 Xtb Jonas Mas | Screw | N/A: | [employer] - | | | 068374 | | 8.5x60 - [id number]: | | Spine | MEDT | | | 04767 | | Qty: 3 on 06/16/2016 by | | Lumbar | | | | / / | | Bennett Dos Santos DO | | | | | | | + +--------+--------+ +--------+--------+--------+ | Screw Set Slra Perc Ti 4.75 - | Screw | N/A: | [employer] - | | | 977856 | | [id number]: Qty: 6 | | Spine | MEDT | | | 0 / / | | on 06/16/2016 by Levon, | | Lumbar | | | | | | Bennett Osei DO | | | | | | | + +--------+--------+ +--------+--------+--------+ | Pacing Wire Dual | | N/A: | | | 06/18/ | 030-00 | | 030-005 - | | Heart | | | 2017 | 5 | | [id number]: Qty: 1 on | | | | | | /[id number] | | 03/30/2013 | | | | | | 5 /155 | + +--------+--------+ +--------+--------+--------+ | Pacing Wire Dual | | N/A: | | | 10/18/ | 030-00 | | 030-005 - | | Heart | | | 2017 | 5 | | [id number]: Qty: 1 on | | | | | | /[id number] | | 03/30/2013 | | | | | | 5 /156 | + +--------+--------+ +--------+--------+--------+ | Graft Infuse Bone Kit Xs - | | | SOFAMOR | | 11/18/ | 189538 | | [id number]: Qty: 1 on | | | DANEK - DIV | | 2014 | 0 / | | 01/31/2014 by Bennett Dos Santos | | | [employer] | | | /[id number] | | A, DO | | | - SFDK | | | [id number] | + +--------+--------+ +--------+--------+--------+ | RodImplanted: Qty: 1 on | | N/A: | [employer] - | | | [id number] | | 01/31/2014 by Bennett Dos Santos | | Spine | MEDT | | | 5100 / | | A, DO | | Lumbar | | | | / | + +--------+--------+ +--------+--------+--------+ | Screw Jonas Solera 6.5x55mm - | | N/A: | SOFAMOR | | | [id number] | | [id number]: Qty: 1 on | | Spine | DANEK - DIV | | | 55819 | | 01/31/2014 by Bennett Dos Santos | | Lumbar | [employer] | | | / / | | DO Farnaz | | | - SFDK | | | | + +--------+--------+ +--------+--------+--------+ | Cannulated ScrewImplanted: | | N/A: | [employer] - | | | [id number] | | Qty: 1 on 01/31/2014 by | | Spine | MEDT | | | 15396 | | Bennett Dos Santos DO | | Lumbar | | | | / / | + +--------+--------+ +--------+--------+--------+ | Cannulated ScrewImplanted: | | N/A: | [employer] - | | | [id number] | | Qty: 2 on 01/31/2014 by | | Spine | MEDT | | | 86852 | | Bennett Dos Santos DO | | Lumbar | | | | / / | + +--------+--------+ +--------+--------+--------+ | Cannulated ScrewImplanted: | | N/A: | [employer] - | | | [id number] | | Qty: 1 on 01/31/2014 by | | Spine | MEDT | | | 80442 | | Bennett Dos Santos DO | | Lumbar | | | | / / | + +--------+--------+ +--------+--------+--------+ | Cannulaed ScrewImplanted: | | | | | | [id number] | | Qty: 1 on 01/31/2014 | | | | | | 6555 / | | | | | | | | / | + +--------+--------+ +--------+--------+--------+ | Graft Infuse Bone Kit Xxs - | | | SOFELEAZAROR | | 11/18/ | [id number] | | [id number]: Qty: 1 on | | | TWILA - DIV | | 2014 | 0 / | | 01/31/2014 by Bennett Dos Santos | | | [employer]IC | | | /[id number] | | DO Farnaz | | | - SFDK | | | [id number] | + +--------+--------+ +--------+--------+--------+ | Chips Cancellous 15cc - | | | OSTEOTECH - | | 11/09/ | [id number] | | [id number]: Qty: 1 | | | OSTT | | 2018 | | | on 01/31/2014 by Levon, | | | | | | /[id number] | | Bennett Osei DO | | | | | | 8-017 | | | | | | | | / | + +--------+--------+ +--------+--------+--------+ | Chips Cancellous 15cc - | | | OSTEOTECH - | | 07/20/ | [id number] | | [id number]: Qty: 1 | | | OSTT | | 2017 | | | on 01/31/2014 by Levon, | | | | | | /[id number] | | Bennett Osei DO | | | | | | 5-045 | | | | | | | | / | + +--------+--------+ +--------+--------+--------+ | Set Scrw Ns G5 Brk Off Ti | | | SOFAMOR | | | [id number] | | 4.75 - [id number]: | | | DANEK - DIV | | | 0 / / | | Qty: 6 on 01/31/2014 by | | | [employer] | | | | | Bennett Dos Santos DO | | | - SFDK | | | | + +--------+--------+ +--------+--------+--------+ | Imp Spn Spcr Cpstn 8x26mm - | | | SOFAMOR | | 07/21/ | [id number] | | [id number]: Qty: 1 on | | | DANEK - DIV | | 2020 | 6 / | | 01/31/2014 by Bennett Dos Santos | | | [employer]IC | | | /[id number] | | DO Farnaz | | | - SFDK | | | 825 | + +--------+--------+ +--------+--------+--------+ | Imp Spn Cage Cpstn 26x9mm - | | | [employer]IC - | | 01/06/ | [id number] | | [id number]: Qty: 1 on | | | MEDT | | 2021 | 6 / | | 01/31/2014 by Bennett Dos Santos | | | | | | /[id number] | | DO Farnaz | | | | | | 513 | + +--------+--------+ +--------+--------+--------+ | Imp Spn Cage Cpstn 26x9mm - | | | [employer]IC - | | 01/06/ | 498235 | | [id number]: Qty: 1 on | | | MEDT | | 2021 | 6 / | | 01/31/2014 by Bennett Dos Santos | | | | | | /[id number] | | A, DO | | | | | | 513 | + +--------+--------+ +--------+--------+--------+ | RodImplanted: Qty: 1 on | | N/A: | [employer] - | | | [id number] | | 01/31/2014 by Bennett Dos Santos | | Spine | MEDT | | | 5090 / | | A, DO | | Lumbar | | | | / | + +--------+--------+ +--------+--------+--------+ | Stim Nrv Lead Octrode 60cm - | | N/A: | [facility] | | 02/10/ | 3086 | | [id number]: Qty: 1 on | | Back | MEDICAL - | | 2019 | /[id number] | | 07/21/2018 by Shahrzad, | | | JU | | | 614 | | DO Atif | | | | | | /NA | + +--------+--------+ +--------+--------+--------+ | Stim Nrv Lead Octrode 60cm - | | N/A: | [facility] | | 12/01/ | [id number] | | [id number]: Qty: 1 on | | Back | MEDICAL - | | 2019 | S | | 07/21/2018 by Shahrzad, | | | STJU | | | /[id number] | | DO Atif | | | | | | 325 | | | | | | | | /NA | + +--------+--------+ +--------+--------+--------+ Results Not on filefrom Last 3 Months Insurance + +--------+ +--------+ +---------+--------+ | Payer | Benefi | Subscriber | Effect | Phone | Address | Type | | | t Plan | ID | jalyn | | | | | | / | | Dates | | | | | | Group | | | | | | + +--------+ +--------+ +---------+--------+ | [employer]IG[employer] | CIGNA | [id number] | Effect | [phone] | | Indemn | | | MDCR | | jalyn | 1 | | ity | | | SUPPLE | | for | | | | | | MENT | | all | | | | | | SOLUTI | | dates | | | | | | ONS | | | | | | + +--------+ +--------+ +---------+--------+ | MEDICARE | MEDICA | [id number] | 12/18/19 | [phone] | | Medica | | | RE | | 12-Pre | 5 | | re | | | PART A | | sent | | | | | | AND B | | | | | | + +--------+ +--------+ +---------+--------+ | [employer] SENIOR | AMERIC | [id number] | 02/17/20 | [phone] | | Indemn | | SUPPLEMENTAL INS | AN | | 14-Pre | 7 | | ity | | | CONTIN | | sent | | | | | | ENTAL | | | | | | | | INS CO | | | | | | | | MDCR | | | | | | | | SUPPL | | | | | | + +--------+ +--------+ +---------+--------+ | MEDICARE | MEDICA | [id number] | 12/18/19 | [phone] | | Medica | | | RE | | 12-Pre | 5 | | re | | | PART A | | sent | | | | | | AND B | | | | | | + +--------+ +--------+ +---------+--------+ + +--------+ +--------+ + + | Guarantor Name | Accoun | Relation to | Date | Phone | Billing Address | | | t Type | Patient | of | | | | | | | | | | + +--------+ +--------+ + + | Antonia Almanza | Person | Self [birth year] [address] | | | al/Fam | | 1950 | [phone] | [place] | | | nasim | | | 2 (Home) | [phone] | + +--------+ +--------+ + + | Antonia Almanza | Person | Self [birth year] | [address] | | | al/Sj | | 1950 | [phone] | [place] | | | nasim | | | [address] (Home) | [phone] | + +--------+ +--------+ + + Advance Directives Patient has advance care planning documents, and code status on file. For more information, please contact:[facility] [place] [address] + + + + + | Code Status | Date | Date | Comments | | | Activated | Inactivated | | + + + + + | Full Code | 06/16/2016 | 06/19/2016 | | | | 15:06 | 16:41 | | + + + + + + + + +---+ | | | | | + + + +---+ | Full Code | 01/31/2014 | 02/02/2014 | | | | 18:34 | 14:15 | | + + + +---+
--- OUTSIDE RECORDS SUMMARY | ~2019-08-14 | XMS | Clinical Summary ---
Demographics + + + | Address | [address] | | | [place] [address] | + + + | Home Phone | | + + + | Preferred Language | Unknown | + + + | Marital Status | Single | + + + | Sikhism Affiliation | 1028 | + + + | Race | Unknown | + + + | Ethnic Group | Unknown | + + + Author + + + | Author | [facility] (Historical as of | | | 06-04-19) | + + + | Organization | [facility] (Historical as of | | | 06-04-19) [...] Team Providers + +------+ + | Care Drywall Application Supervisor Name | Role | Phone | + [...] Overview: Added automatically from request for surgery [id number] | + + + + + | Lumbosacral radiculopathy | 06/22/2018 | + + + + + | Overview: Added automatically from request for surgery [id number] | + + + + + | Lumbar radiculopathy | 05/25/2018 | + + + + + | Overview: Added automatically from request for surgery [id number] | + + + + + | Lumbar postlaminectomy syndrome | 05/25/2018 | + + + + + | Overview: Added automatically from request for surgery [id number] | + + + + + | Radiculopathy, lumbosacral region | 05/25/2018 | + + + + + | Overview: Added automatically from request for surgery [id number] | + + + + + | [...] + + | CAD (coronary artery disease), tling[place] & [place] coronary artery | 03/28/2013 | + + [...] 3 | + + + + | Nzzzd-mk-jazoebu respiratory failure | 03/30/20 | | | [...] | | 2016 | 5 | | [id number]: Qty: 1 on | | | | [...] | | 2016 | 5 | | [id number]: Qty: 1 on | | | | | | / | | 03/30/2013 by Vickie, | | | | | | | | MD Angel | | | | | | | + +------+-------+ +--------+--------+--------+ | Stim Nrv Lead Octrode 60cm - | | N/A: | [facility] | | 02/10/ | 3086 | | [id number]: Qty: 1 on | | Back | MEDICAL - | | 2019 | /[id number] | | 07/21/2018 by Shahrzad, | | | PEDRO | | | 614 | | DO Atif | | | | | | /NA | + +------+-------+ +--------+--------+--------+ | Stim Nrv Lead Octrode 60cm - | | N/A: | [facility] | | 12/01/ | [id number] | | [id number]: Qty: 1 on | | Back | MEDICAL - | | 2020 | S | | 07/21/2018 by Shahrzad, | | | PEDRO | | | /[id number] | | DO Atif | | | [...] +--------+-------+ + | MEDICARE | MEDICA | [id number] | | | [address] | | | RE | | | | [place] [address] | | | IP-OP | | | | | + +--------+ +--------+-------+ + | STEWART | GLORYYAL | [id number] | Indemn | | | | | [...] | | al/Fam | | 1950 | [phone] [place] | | | nasim | | | [phone] | [phone] | + +--------+ +--------+ + +
--- OUTSIDE RECORDS SUMMARY | ~2019-08-14 | XMS | Clinical Summary ---
Demographics + + + | Address | [address] | | | [place] [address] | + + + | Home Phone | | + + + | Preferred Language | Unknown | + + + | Marital Status | Single | + + + | Holiness Affiliation | 1028 | + + + | Race | Unknown | + + + | Ethnic Group | Unknown | + + + Author + + + | Author | [facility] | | | and [place] | + + + | Organization | [facility] | | | [...] Team Providers + +------+ + | Care Flow Floor Attendant Name | Role | Phone | + [...] | | + + + +---------+------+------+-------+ | [place]-3 Fatty | take 2 capsules | | [...] | Added automatically from request for surgery [id number] | | Overview: | | Added automatically from request for surgery [id number] | + + + + + | Radiculopathy, lumbosacral region | 05/25/2018 | + + + + + | Overview: Overview: | | Added automatically from request for surgery [id number] | | Overview: | | Added automatically from request for surgery [id number] | + + + + + | [...] + + | CAD (coronary artery disease), [place] coronary artery | 03/28/2013 | + + [...] | 2019 | [facility] | | [address] [facility] [address] | | | | | | [place], | | | | | | [place] [address] | | | | | | [phone] | | | | | | | [...] N/A: | MUSCULOSKEL | | 01/08/ | [id number] | | [id number]: Qty: 1 | | Spine | ETAL | | 2020 | | | on 06/16/2016 by Levon, | | Lumbar | TRANSPLA - | | | /[id number] | | Bennett Osei DO | | | MUSC | | | 7-039 | | | | | | | | / | + +--------+--------+ +--------+--------+--------+ | Imp Spn Spcr Cpstn 7x22mm - | Generi | N/A: | SOFAMOR | | 03/29/ | [id number] | | [id number]: Qty: 1 on | c | Spine | DANEK - DIV | | 2022 | 2 / | | 06/16/2016 by Bennett Dos Santos | | Lumbar | MEDTRONIC | | | /[id number] | | DO Farnaz | | | - SFDK | | | 686 | + +--------+--------+ +--------+--------+--------+ | Chris Sextant Ccm 4.93x083jr - | Generi | N/A: | MEDTRONIC - | | | [id number] | | [id number]: Qty: 2 on | c | Spine | MEDT | | | 5100 / | | 06/16/2016 by Bennett Dos Santos | | Lumbar | | | | / | | DO Farnaz | | | | | | | + +--------+--------+ +--------+--------+--------+ | Graft Infuse Bone Kit Xxs - | Graft | N/A: | SOFAMOR | | 05/18/ | 757055 | | [id number]: Qty: 1 on | | Spine | [...] | MEDTRONIC - | | 02/18/ | 56334 | | [id number]: Qty: 1 | | Spine | MEDT | | 2019 | /[id number] | | on 06/16/2016 by Levon, | | Lumbar | | | | 7-035 | | Bennett Osei DO | | | | | | / | + +--------+--------+ +--------+--------+--------+ | Screw 4.75 Xtb Jonas Mas | Screw | N/A: | MEDTRONIC - | | | 915373 | | 6.5x60 - [id number]: | | Spine | MEDT | | | [id number] | | Qty: 1 on 06/16/2016 by | | Lumbar | | | | / / | | Bennett Dos Santos DO | | | | | | | + +--------+--------+ +--------+--------+--------+ | Screw 4.75 Xtb Jonas Mas | Screw | N/A: | MEDTRONIC - | | | [id number] | | 6.5x55 - [id number]: | | Spine | MEDT | | | 82263 | | Qty: 1 on 06/16/2016 by | | Lumbar | | | | / / | | Bennett Dos Santos DO | | | | | | | + +--------+--------+ +--------+--------+--------+ | Screw 4.75 Xtb Jonas Mas | Screw | N/A: | MEDTRONIC - | | | [id number] | | 7.5x60 - [id number]: | | Spine | MEDT | | | [id number] | | Qty: 1 on 06/16/2016 by | | Lumbar | | | | / / | | Bennett Dos Santos DO | | | | | | | + +--------+--------+ +--------+--------+--------+ | Screw 4.75 Xtb Jonas Mas | Screw | N/A: | MEDTRONIC - | | | 693837 | | 8.5x60 - [id number]: | | Spine | MEDT | | | 92753 | | Qty: 3 on 06/16/2016 by | | Lumbar | | | | / / | | Bennett Dos Santos DO | | | | | | | + +--------+--------+ +--------+--------+--------+ | Screw Set Slra Perc Ti 4.75 - | Screw | N/A: | MEDTRONIC - | | | [id number] | | [id number]: Qty: 6 | | Spine | MEDT [...] | | 2017 | 5 | | [id number]: Qty: 1 on | | | | | | /[id number] | | 03/30/2013 | | | | | | 5 /155 | + +--------+--------+ +--------+--------+--------+ | Pacing Wire Dual | | N/A: | | | 10/18/ | 030-00 | | 030-005 - | | Heart | | | 2017 | 5 | | [id number]: Qty: 1 on | | | | | | /[id number] | | 03/30/2013 | | | | | | 5 /156 | + +--------+--------+ +--------+--------+--------+ | Graft Infuse Bone Kit Xs - | | | SOFAMOR | | 11/18/ | [id number] | | [id number]: Qty: 1 on | | | DANEK - DIV | | 2014 | 0 / | | 01/31/2014 by Bennett Dos Santos | | | MEDTRONIC | | | /[id number] | | A, DO | | | - SFDK | | | [id number] | + +--------+--------+ +--------+--------+--------+ | RodImplanted: Qty: 1 on | | N/A: | MEDTRONIC - | | | [id number] | | 01/31/2014 by Bennett Dos Santos | | Spine | MEDT | | | 5100 / | | A, DO | | Lumbar | | | | / | + +--------+--------+ +--------+--------+--------+ | Screw Jonas Solera 6.5x55mm - | | N/A: | SOFAMOR | | | [id number] | | [id number]: Qty: 1 on | | Spine | DANEK - DIV | | | 05549 | | 01/31/2014 by Bennett Dos Santos | | Lumbar | MEDTRONIC | | | / / | | DO Farnaz | | | - SFDK | | | | + +--------+--------+ +--------+--------+--------+ | Cannulated ScrewImplanted: | | N/A: | MEDTRONIC - | | | [id number] | | Qty: 1 on 01/31/2014 by | | Spine | MEDT | | | 64950 | | Bennett Dos Santos DO | | Lumbar | | | | / / | + +--------+--------+ +--------+--------+--------+ | Cannulated ScrewImplanted: | | N/A: | MEDTRONIC - | | | [id number] | | Qty: 2 on 01/31/2014 by | | Spine | MEDT | | | 57612 | | Bennett Dos Santos DO | | Lumbar | | | | / / | + +--------+--------+ +--------+--------+--------+ | Cannulated ScrewImplanted: | | N/A: | MEDTRONIC - | | | [id number] | | Qty: 1 on 01/31/2014 by | | Spine | MEDT | | | 76227 | | Bennett Dos Santos DO | | Lumbar | | | | / / | + +--------+--------+ +--------+--------+--------+ | Cannulaed ScrewImplanted: | | | | | | [id number] | | Qty: 1 on 01/31/2014 | | | | | | 6555 / | | | | | | | | / | + +--------+--------+ +--------+--------+--------+ | Graft Infuse Bone Kit Xxs - | | | SOFELEAZAROR | | 11/18/ | 130126 | | [id number]: Qty: 1 on | | | TWILA - DIV | | 2014 | 0 / | | 01/31/2014 by Bennett Dos Santos | | | MEDTRONIC | | | /[id number] | | DO Farnaz | | | - SFDK | | | 05AAP | + +--------+--------+ +--------+--------+--------+ | Chips Cancellous 15cc - | | | OSTEOTECH - | | 11/09/ | [id number] | | [id number]: Qty: 1 | | | OSTT | | 2018 | | | on 01/31/2014 by Levon, | | | | | | /[id number] | | Bennett Osei DO | | | | | | 8-017 | | | | | | | | / | + +--------+--------+ +--------+--------+--------+ | Chips Cancellous 15cc - | | | OSTEOTECH - | | 07/20/ | [id number] | | [id number]: Qty: 1 | | | OSTT | | 2017 | | | on 01/31/2014 by Levon, | | | | | | /[id number] | | Bennett Osei DO | | | | | | 5-045 | | | | | | | | / | + +--------+--------+ +--------+--------+--------+ | Set Scrw Ns G5 Brk Off Ti | | | SOFAMOR | | | [id number] | | 4.75 - [id number]: | | | DANEK - DIV | | | 0 / / | | Qty: 6 on 01/31/2014 by | | | MEDTRONIC | | | | | Bennett Dos Santos DO | | | - SFDK | | | | + +--------+--------+ +--------+--------+--------+ | Imp Spn Spcr Cpstn 8x26mm - | | | SOFAMOR | | 07/21/ | [id number] | | [id number]: Qty: 1 on | | | DANEK - DIV | | 2020 | 6 / | | 01/31/2014 by Bennett Dos Santos | | | MEDTRONIC | | | /[id number] | | DO Farnaz | | | - SFDK | | | 825 | + +--------+--------+ +--------+--------+--------+ | Imp Spn Cage Cpstn 26x9mm - | | | MEDTRONIC - | | 01/06/ | [id number] | | [id number]: Qty: 1 on | | | MEDT | | 2021 | 6 / | | 01/31/2014 by Bennett Dos Santos | | | | | | /[id number] | | DO Farnaz | | | | | | 513 | + +--------+--------+ +--------+--------+--------+ | Imp Spn Cage Cpstn 26x9mm - | | | MEDTRONIC - | | 01/06/ | [id number] | | [id number]: Qty: 1 on | | | MEDT | | 2021 | 6 / | | 01/31/2014 by Bennett Dos Santos | | | | | | /[id number] | | A, DO | | | | | | 513 | + +--------+--------+ +--------+--------+--------+ | RodImplanted: Qty: 1 on | | N/A: | MEDTRONIC - | | | [id number] | | 01/31/2014 by Bennett Dos Santos | | Spine | MEDT | | | 5090 / | | A, DO | | Lumbar | | | | / | + +--------+--------+ +--------+--------+--------+ | Stim Nrv Lead Octrode 60cm - | | N/A: | [facility] | | 02/10/ | 3086 | | [id number]: Qty: 1 on | | Back | MEDICAL - | | 2019 | /[id number] | | 07/21/2018 by Shahrzad, | | | JU | | | 614 | | DO Atif | | | | | | /NA | + +--------+--------+ +--------+--------+--------+ | Stim Nrv Lead Octrode 60cm - | | N/A: | [facility] | | 12/01/ | [id number] | | [id number]: Qty: 1 on | | Back | MEDICAL - | | 2019 | S | | 07/21/2018 by Shahrzad, | | | STJU | | | /[id number] | | DO Atif | | | [...] +--------+ +---------+--------+ | CIGNA | CIGNA | [id number] | Effect | [phone] | | Indemn [...] +--------+ +---------+--------+ | MEDICARE | MEDICA | [id number] | 12/18/19 | [phone] | | Medica | | | RE | | 12-Pre | 5 | | re | | | PART A | | sent | | | | | | AND B | | | | | | + +--------+ +--------+ +---------+--------+ | AETNA SENIOR | AMERIC | [id number] | 02/17/20 | [phone] | | Indemn | | SUPPLEMENTAL INS [...] +--------+ +---------+--------+ | MEDICARE | MEDICA | [id number] | 12/18/19 | [phone] | | Medica [...] | | al/Fam | | 1950 | [phone] | [place] | | | nasim | | | 2 (Home) | [phone] | + +--------+ +--------+ + + | Antonia Almanza | Person | Self | [birth year] | [address] | | | al/Sj | | 1950 | [phone] | [place] | | | nasim | | | 2 (Home) | [phone] | + +--------+ +--------+ + + Advance Directives Patient has advance care planning documents, and code status on file. For more information, please contact:[facility] [place] [address] + + + + + | Code [...]
[~2019-08-14 13:37] MED LIST changes: +KEFLEX500 MG PO
--- OUTSIDE RECORDS SUMMARY | 2019-08-14 13:40 | XMS ---
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 E.D. VISIT COUNT (12 MO.) [address] [place] [address] TOTAL 5 NOTE: Visits indicate total known visits. ED/UCC VISIT TRACKING (12 MO.) 08/14/2019 13:37 [facility] [place] TYPE: Emergency COMPLAINT: - DIFFICULTY BREATHING 07/07/2019 11:16 [facility] [place] TYPE: Emergency COMPLAINT: - RIGHT LEG PAIN NON INJURY DIAGNOSES: - Cellulitis of right lower limb - Localized edema - 1 Type 2 diabetes mellitus without complications - Allergy status to oth drug/meds/biol subst status - Nicotine dependence, unspecified, uncomplicated - Old myocardial infarction - Other manager long term care (current) drug therapy - USP (current) use of aspirin - Pain in right knee 07/06/2019 21:16 [facility] [place] TYPE: Emergency COMPLAINT: - RIGHT LEG SWELLING/ NO INJURY DIAGNOSES: - Proc/trtmt not crd out d/t pt lv bef seen by the [facility] care prov 01/13/2019 22:05 [facility] [place] TYPE: Emergency COMPLAINT: - R LEG BITE DIAGNOSES: - Other halfway (current) drug therapy - Exposure to other specified factors, initial encounter - Presence of aortocoronary bypass graft - Acquired absence of both cervix and uterus - Nicotine dependence, cigarettes, uncomplicated - 1 Type 2 diabetes mellitus without complications - Unspecified open wound, right thigh, initial encounter - ad terminal makeup operator (current) use of aspirin - Chronic obstructive pulmonary disease, unspecified - Local infection of the skin and subcutaneous tissue, unsp - ad terminal makeup operator (current) use of oral hypoglycemic drugs - Allergy status to oth drug/meds/biol subst status - Old myocardial infarction 12/01/2018 10:20 [facility] [place] TYPE: Emergency COMPLAINT: - SWOLLEN TONGUE/THROAT DIAGNOSES: - Allergy status to oth drug/meds/biol subst status - Old myocardial infarction - Personal history of nicotine dependence - Other halfway (current) drug therapy - Angioneurotic edema, initial encounter - 1 Type 2 diabetes mellitus without complications INPATIENT VISIT TRACKING (12 MO.) No inpatient visits to display in this time frame [id number]
[2019-08-14] MEDS ORDERED: MEDROL4 M1 PO (16:24)
--- NOTE | 2019-08-15 07:26 | EKG ---
[facility] [address] [address] [place] [address] Signed Sinus rhythm with premature supraventricular complexes Possible Left atrial enlargement Nonspecific intraventricular block Abnormal QRS-T angle, consider primary T wave abnormality Abnormal ECG No previous ECGs available Confirmed by OG MICHAEL MD ([id number]) on 08/15/2019 7:26:30 AM Electronically Signed By: OG MICHAEL MD 08/15/19 0726 PATIENT NAME: MARYCRUZ RIVERO Electrocardiogram DATE OF : 48 PHYSICIAN: OG MICHAEL MD REPORT #: [id number] REPORT IS CONFIDENTIAL AND NOT TO BE RELEASED WITHOUT AUTHORIZATION
== END 2019-08-14 16:39 | disposition home or self-care (01) ==
LOC: ED 13:37
DX: J44.1 Chronic obstructive pulmonary disease with (acute) exacerbation (principal); E11.9 Type 2 diabetes mellitus without complications; I25.2 Old myocardial infarction; F17.200 Nicotine dependence, unspecified, uncomplicated; Z88.8 Allergy status to other drugs, medicaments and biological substances; Z79.82 Long term (current) use of aspirin; Z79.899 Other long term (current) drug therapy
CPT/HCPCS: 71045; 80053; 83880; 84484; 85025; 93005; 93010; 94640; 99285-25; J1100

== ENCOUNTER 2019-11-28 17:24 | Emergency (ER) | payer MEDICARE, OTHER ==
[~2019-11-28] VITALS: Ht 165.1 cm; Wt 96.2 kg
[~2019-11-28 17:24] MED LIST changes: +MEDROL4 M1 PO
--- OUTSIDE RECORDS SUMMARY | 2019-11-28 17:26 | XMS ---
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 CRITERIA MET - PDMP CARE PROVIDERS JACQUIE [place] Physician 07/11/2019-Current PHONE: Unknown Cash Pino MD PHONE: Unknown Ray has no Care Guidelines for this patient. E.D. VISIT COUNT (12 MO.) [address] [place] [address] TOTAL 6 NOTE: Visits indicate total known visits. ED/UCC VISIT TRACKING (12 MO.) 11/28/2019 17:24 [facility] [place] TYPE: Emergency COMPLAINT: - FALL 08/14/2019 13:37 [facility] [place] TYPE: Emergency COMPLAINT: - DIFFICULTY BREATHING DIAGNOSES: - Dyspnea, unspecified - 1 Type 2 diabetes mellitus without complications - Allergy status to oth drug/meds/biol subst status - Other detention (current) drug therapy - Chronic obstructive pulmonary disease w (acute) exacerbation - Nicotine dependence, unspecified, uncomplicated - Old myocardial infarction - long term care phlebotomist (current) use of aspirin 07/07/2019 11:16 [facility] [place] TYPE: Emergency COMPLAINT: - RIGHT LEG PAIN NON INJURY DIAGNOSES: - Cellulitis of right lower limb - Localized edema - 1 Type 2 diabetes mellitus without complications - Allergy status to oth drug/meds/biol subst status - Nicotine dependence, unspecified, uncomplicated - Old myocardial infarction - Other detention (current) drug therapy - care home (current) use of aspirin - Pain in right knee 07/06/2019 21:16 [facility] [place] TYPE: Emergency COMPLAINT: - RIGHT LEG SWELLING/ NO INJURY DIAGNOSES: - Proc/trtmt not crd out d/t pt lv bef [facility] 01/13/2019 22:05 [facility] [place] TYPE: Emergency COMPLAINT: - R LEG BITE DIAGNOSES: - Other oysterman (current) drug therapy - Exposure to other specified factors, initial encounter - Presence of aortocoronary bypass graft - Acquired absence of both cervix and uterus - Nicotine dependence, cigarettes, uncomplicated - 1 Type 2 diabetes mellitus without complications - Unspecified open wound, right thigh, initial encounter - care home (current) use of aspirin - Chronic obstructive pulmonary disease, unspecified - Local infection of the skin and subcutaneous tissue, unsp - long term care phlebotomist (current) use of oral hypoglycemic drugs - Allergy status to oth drug/meds/biol subst status - Old myocardial infarction 12/01/2018 10:20 [facility] [place] TYPE: Emergency COMPLAINT: - SWOLLEN TONGUE/THROAT DIAGNOSES: - Allergy status to oth drug/meds/biol subst status - Old myocardial infarction - Personal history of nicotine dependence - Other detention (current) drug therapy - Angioneurotic edema, initial encounter - 1 Type 2 diabetes mellitus without complications INPATIENT VISIT TRACKING (12 MO.) No inpatient visits to display in this time frame [email or web address]
[2019-11-28] MEDS ORDERED: CLONAZEPAM0.5 MG PO (17:47)
[2019-11-28] MEDS ORDERED: HYDROCODON-ACE1 EA11 PO (17:49)
== END 2019-11-28 20:41 | disposition home or self-care (01) ==
LOC: ED 17:24
DX: S80.11XA Contusion of right lower leg, initial encounter (principal); I10 Essential (primary) hypertension; I87.2 Venous insufficiency (chronic) (peripheral); W19.XXXA Unspecified fall, initial encounter; E11.9 Type 2 diabetes mellitus without complications; I25.2 Old myocardial infarction; J44.9 Chronic obstructive pulmonary disease, unspecified; F17.200 Nicotine dependence, unspecified, uncomplicated; Z88.8 Allergy status to other drugs, medicaments and biological substances; Z79.899 Other long term (current) drug therapy; Z79.82 Long term (current) use of aspirin; Z79.84 Long term (current) use of oral hypoglycemic drugs
CPT/HCPCS: 73590; 93971; 99284-25

== ENCOUNTER 2019-12-13 00:26 | Inpatient (IN) | payer MEDICARE, OTHER ==
[~2019-12-13] VITALS: Ht 165.1 cm; Wt 94.7 kg
[~2019-12-13 00:26] MED LIST changes: +HYDROCODON-ACE1 EA11 PO; -MULTI-DAY VITA1 EACH PO; +MULTI-VITAMIN1 EACH PO
--- OUTSIDE RECORDS SUMMARY | 2019-12-13 00:28 | XMS ---
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 CRITERIA MET - [facility] - [facility] - 2 Visits in 30 Days CARE PROVIDERS JACQUIE [place]ON Physician 07/11/2019-Current PHONE: Unknown Cash Pino MD PHONE: Unknown Ray has no Care Guidelines for this patient. EBenedicto VISIT COUNT ([address] MO.) [address] [place] [address]. TOTAL 6 NOTE: Visits indicate total known visits. ED/UCC VISIT TRACKING (12 MO.) 12/13/2019 00:27 [facility] [place] TYPE: Emergency COMPLAINT: - WOUND CHECK 11/28/2019 17:24 [facility] [place] TYPE: Emergency COMPLAINT: - FALL DIAGNOSES: - Old myocardial infarction - Contusion of right lower leg, initial encounter - Allergy status to oth drug/meds/biol subst status - Essential (primary) hypertension - terminal operations supervisor (current) use of aspirin - Unspecified fall, initial encounter - 1 Type 2 diabetes mellitus without complications - Nicotine dependence, unspecified, uncomplicated - Other jail (current) drug therapy - Venous insufficiency (chronic) (peripheral) - detention (current) use of oral hypoglycemic drugs - Chronic obstructive pulmonary disease, unspecified - Other specified soft tissue disorders 08/14/2019 13:37 [facility] [place] TYPE: Emergency COMPLAINT: - DIFFICULTY BREATHING DIAGNOSES: - Dyspnea, unspecified - 1 Type 2 diabetes mellitus without complications - Allergy status to oth drug/meds/biol subst status - Other jail (current) drug therapy - Chronic obstructive pulmonary disease w (acute) exacerbation - Nicotine dependence, unspecified, uncomplicated - Old myocardial infarction - detention (current) use of aspirin 07/07/2019 11:16 [facility] [place] TYPE: Emergency COMPLAINT: - RIGHT LEG PAIN NON INJURY DIAGNOSES: - Cellulitis of right lower limb - Localized edema - 1 Type 2 diabetes mellitus without complications - Allergy status to oth drug/meds/biol subst status - Nicotine dependence, unspecified, uncomplicated - Old myocardial infarction - Other jail (current) drug therapy - detention (current) use of aspirin - Pain in right knee 07/06/2019 21:16 [facility] [place] TYPE: Emergency COMPLAINT: - RIGHT LEG SWELLING/ NO INJURY DIAGNOSES: - Proc/trtmt not crd out d/t pt lv bef seen by [facility] care prov 01/13/2019 22:05 [facility] [place] TYPE: Emergency COMPLAINT: - R LEG BITE DIAGNOSES: - Other jail (current) drug therapy - Exposure to other specified factors, initial encounter - Presence of aortocoronary bypass graft - Acquired absence of both cervix and uterus - Nicotine dependence, cigarettes, uncomplicated - 1 Type 2 diabetes mellitus without complications - Unspecified open wound, right thigh, initial encounter - terminal operations supervisor (current) use of aspirin - Chronic obstructive pulmonary disease, unspecified - Local infection of the skin and subcutaneous tissue, unsp - terminal operations supervisor (current) use of oral hypoglycemic drugs - Allergy status to oth drug/meds/biol subst status - Old myocardial infarction INPATIENT VISIT TRACKING (12 MO.) No inpatient visits to display in this time frame [id number]
[2019-12-13] MEDS ORDERED: SULFAMETHOXAZO1 EAC1 PO (00:40)
--- NOTE | 2019-12-13 04:00 | NUR ---
PT ARRIVED TO ROOM 128 AT 0243 VIA STRETCHER, ACCOMPANIED BY A CAREGIVER. PT NORMALLY LIVES ALONE AND HAS 2 CAREGIVERS THAT CHECK IN ON HER. PT IS LETHARGIC, AROUSES WHEN SPOKEN TO AND ANSWERS ALL QUESTIONS APPROPRIATELY. SPEECH IS SOMEWHAT SLURRED AND DIFFICULT TO UNDERSTAND AT TIMES. PT FALLS ASLEEP IN BETWEEN CARE, BUT WHEN AWAKE STATES SHE IS ANXIOUS AND NEEDS HER CLONAZEPAM. PT'S SKIN HAS SCATTERED BRUISES, ABRASIONS, AND SCABS, PT HAS HAD MULTIPLE FALLS AT HOME. WOUND TO RIGHT LOWER LEG HAS OPEN AREA ABOUT 3 CM LONG, SMALL AMOUNT OF SANGUINOUS DRAINAGE PRESENT. COVERED WOUND WITH NON-ADHERANT PAD, ABD, AND GAUZE. IV SITES PATENT, IVF STARTED. PT UP TO BSC WITH SBA TO VOID AND THEN BACK TO BED, BED ALARM ON FOR SAFETY.
--- NOTE | 2019-12-13 06:14 | NUR ---
PT ATTEMPTING TO GET OUT OF BED STATING "I NEED TO WALK AROUND, I'M TOO ANXIOUS." PT ALSO WANTING TO SIT AT SIDE OF BED. PT REMINDED THAT SHE IS TOO DROWSY TO SIT AT SIDE OF BED AND TOO UNSTEADY TO GO WALKING RIGHT NOW. PT ARGUMENTATIVE. OFFERED TO LET PT SIT IN CHAIR, PT REFUSES. PT ASSISTED TO GET BACK INTO THE BED WITH THE ASSIST OF ADDITIONAL RN AND LOCATION DIRECTOR. BED ALARM REMAINS ON. PT CONTINUES TO DRIFT OFF TO SLEEP BETWEEN TALKING. PT AGAIN TRIED TO MOVE LEGS OUTSIDE OF BED, LOCATION DIRECTOR IN TO REMIND HER TO KEEP HER LEGS IN THE BED. PT CUSSING AT LOCATION DIRECTOR. PT REMAINS IN BED AT THIS TIME.
--- NOTE | 2019-12-13 06:24 | NUR ---
DR. MICHAEL UPDATED ON PT BEHAVIOUR.
--- NOTE | 2019-12-13 06:54 | EKG ---
[facility] [address] [facility] [place] [address] Signed Normal sinus rhythm Left bundle branch block Abnormal ECG When compared with ECG of 14-AUG-2019 16:17, premature supraventricular complexes are no longer present Nonspecific T wave abnormality, worse in Lateral leads Confirmed by OG MICHAEL MD ([id number]) on 12/13/2019 6:54:20 AM Electronically Signed By: OG MICHAEL MD 12/13/19 0654 PATIENT NAME: MARYCRUZ RIVERO SUSAN Electrocardiogram DATE OF : 48 PHYSICIAN: OG MICHAEL MD REPORT #: [id number] REPORT IS CONFIDENTIAL AND NOT TO BE RELEASED WITHOUT AUTHORIZATION
--- NOTE | 2019-12-13 09:31 | NUR ---
DR MICHAEL INTO TALK WITH PT DUE TO SHE IS WANTING TO GO HOME. PT HAS BEEN UP TO THE BEDSIDE COMMODE X 2 AND IS ABLE TO GET UP OUT OF BED WITH ONE PERSON ASSISTANCE. SHE HAS NOT VOIDED WITH EACH TRIP TO THE COMMODE, BUT IS ABLE TO PASS GAS.
--- NOTE | 2019-12-13 09:58 | NUR ---
UNABLE TO DO PT ASSESSMENT, PT SLEEPING OR UNCOOPERATIVE.
[2019-12-13] MEDS ORDERED: GABAPENTIN300 MG PO (10:16)
[2019-12-13] MEDS ORDERED: METOPROLOL SUCC50 MG PO (10:16)
--- NOTE | 2019-12-13 10:42 | NUR ---
DERREK AND WILLY IS HERE ALSO INTERVIEWING PT AT THIS TIME. PT WILL TALK WITH THEM AND THEN FALL ASLEEP. SECURITY HAS BEEN HERE ALL MORNING TO HELP KEEP PT IN HER ROOM AND BED FOR STAFF. DUE TO THAT SHE WANTS TO LEAVE AND IS UNSTEADY ON HER FEET AT TIME.
--- NOTE | 2019-12-13 10:55 | NUR ---
MESSAGE LEFT FOR ADULT SERVICES AT THIS TIME
--- NOTE | 2019-12-13 11:02 | NUR ---
[facility]. PT AGREEDED TO STAY TODAY AT LEAST AT THIS TIME. SEE PROG NOTE IN CHART.
--- NOTE | 2019-12-13 11:20 | NUR ---
REDRESSED RIGHT LEG WITH ADAPATE AND ABD, WITH A GUAZE WRAP AND THEN COBAN TO HOLD INPLACE.
--- NOTE | 2019-12-13 11:46 | NUR ---
PT WAS UP IN THE CHAIR, BACK TO BED DUE TO PT FALLING ASLEEP AND WEAVING. BACK TO BED SIDE RAILS X 4 WITH BED ALARM ON AT THIS TIME. DRESSING REMAINS INTACK AT THIS TIME, PT AT TIMES YELLING OUTLOUD FOR NIDA. PT TRIES TO CLIMB OUT OF BED AT TIMES. BUT IS ACROSS FROM NURSES STATION FOR DIRECT VIEW OF STAFF.
--- NOTE | 2019-12-13 12:00 | NUR ---
PT NPO AT THIS TIME.
--- NOTE | 2019-12-13 12:04 | NUR ---
PT IN BED AT TIMES AWAKES YELLING FOR A PERSON THAT IS NOT PRESENT IN THE ROOM. O2 VIA NC INPLACE DUE TO PT WILL STOP BREATHING WHEN SLEEPING AND DESAT TO THE LOW 80'S. PT WILL NOT NOT WEAR SPO2 MONITOR WILL TRY THE PAE ONE.
--- NOTE | 2019-12-13 12:51 | NUR ---
pt was found to be in a-fib with rvr rate up to the 190's but mostley in the 166. dr brennan notifited, cardizem 15mg ivp given and then 10mg ivp given. HeaRT RATE DECREASED TO THE 120'S IN TIME. CARDIZEM DRIP STARTED AT 20MG /HR AND VITAL SIGNS Q 15MINS. PT STILL NOT COOPERATIVE WITH TREATMENT, 5MG VALIUM GIVEN IVP TO HELP KEEP PT IN BED AND FROM PULLING TUBES. DR MICHAEL AT THE BEDSIDE. AFTER THE 5MG VALIUM PT IS ASLEEP AND COOPERATIVE WITH TREATMEN. BEFORE THAT 5 STAFF IN ROOM TO KEEP PT IN BED AND FROM PULLING TUBES. CARDIZEM DRIP CONTIOUES TO BE AT 20MG/HR WITH A RATE OF 131. EKG CONFERMED RHYTHUM AND RATE. RT, 2-RN'S AND STUDENT AND PHARMACY IN ROOM DUING THIS TIME.
--- NOTE | 2019-12-13 12:59 | NUR ---
Med rec completed. Obtained refill history from Fransisca. Was unable to verify if she is still taking ASA 81 mg or the supplements.
--- NOTE | 2019-12-13 13:17 | NUR ---
CONROY CATHETER PLACED 300MLS YELLOW IN COLOR URINE NOTED.
--- NOTE | 2019-12-13 15:04 | NUR ---
PT AWAKEN AT THIS TIME, PULLING AT TUBES, TRYING TO CLIMB OUT OF BED, SOFT WRIST RESTRAINTS APPLIED AT THIS TIME. PT REMAINS IN A-FIB RATE OF THE 1-TEENS AND BUNOUCES TO THE 130'S AT TIME. CARDIZEM DRIP REMAINS AT 20MG/HR ALSO AT THIS TIME.
--- NOTE | 2019-12-13 15:15 | NUR ---
CARDIZEM DRIP DECREASED TO 10MG/HR AT THIS TIME DUE TO DECREASED HEART RATE AND BLOOD PRESSOR. 1535 CARDIZEM DRIP DECREASED TO 5MG/HR AT THIS TIME BASED ON VS. VITAL SIGNS Q 15MINUTES SEE PAPER CHART FOR COMPLETE RECORD. ALSO IV SITES CHECKED EVERY 15 TO 30 MINUTES. NO REDNESS OR SWELLING NOTED.
--- NOTE | 2019-12-13 16:24 | NUR ---
DR WAGONER INTO SEE PT THIS AFTERNOON AND NEW ORDERS RECEIVED.
--- NOTE | 2019-12-13 16:27 | NUR ---
CARDIZEM DRIP INCREASED TO 10MG/HR AT THIS TIME DUE TO INCREASED HEART RATE. DR WAGONER AWAKE OF INCREASE.
--- NOTE | 2019-12-13 17:23 | NUR ---
RECEIVED CALL FROM LAB PT MAG IS 0.5, DR WAGONER IN DEPARTMENT AND NOTIFIED NEW ORDERS RECEIVED.
--- NOTE | 2019-12-13 17:42 | NUR ---
PT REPOSITIONED AT THIS TIME, MUMBLES WHEN TALKED TOO. BUT DOES NOT CARRIER ON COMERVATION.
--- NOTE | 2019-12-13 18:16 | NUR ---
CARDIZEM DRIP INCREASED TO 20MG/HR AT THIS TIME.
--- NOTE | 2019-12-13 18:20 | NUR ---
PT CONTIOUES TO BE RESTLESS AT THIS TIME TURNING IN THE BED, RESTRAINTS REMAIN IN PLACE.
--- NOTE | 2019-12-13 18:30 | NUR ---
PT PLACED ON CPAP AT THIS TIME. RT PRESENT TO HELP WITH THE PROCESS. RATE OF 16 AND FIO2 35%. SEE IN THE CHART FOR A COMPLETE VIEW OF VS.
--- NOTE | 2019-12-13 20:30 | NUR ---
X-RAY IN TO COMPLETE IMAGING. PATIENT IRRITABLE TO REPOSITIONING. NEW LINEN PLACED UNDER PATIENT AND PILLOWS UNDER EACH ARM. RESTRAINTS RELEASED AND REPLACED. HOB ELEAVTED.
--- NOTE | 2019-12-13 20:32 | NUR ---
1924 SHIFT REPORT RECEIVED. PATIENT RESTING IN BED. RESPONDS TO PHYSICAL STIMULI. RT IN FOR HAND OFF REPORT, NEW CPAP MASK PLACED. PATIENT DOES NOT TOLERATE BIPAP SETTINGS. SWITCHED BACK TO CPAP. NEW MASK FITTING WELL. 1944 PATIENT REPONDS TO PHYSICAL STIMULI WITH MOANS, UNABLE TO COMMUNICATE WITH CPAP MASK IN PLACE. ORBITAL EDEMA NOTED, PATIENT DOES NOT OPEN HER EYES TO STIMULI. EYE DROPS APPLIED. LUNG SOUNDS ARE LIMITED DUE TO SOUND FROM CPAP, AIR MOVEMENT HEARD IN ALL LOBES. ABD IS LARGE, DISTENDED AND FIRM. DISCUSSED WITH MD, X-RAY ORDERED. CONRYO IN PLACE, URINE IS DARK MELANIE IN COLOR. 22ML FOR LAST HOUR. WOUND ON RIGHT LOWER LEG CDI. PEDAL PULSES NOTED BIANCA. WRIST RESTRAINTS IN PLACE, RESTRAINTS RELEASED AND ASSESSMENT WNL. REAPPLIED FOR PROTECTION OF IV LINES AND CORNOY. DILTIAZEM INFUSION AT 15 MG.HR. HR IRREGULAR 110-120'S. AWARE. IV MAG INFUSION PER ORDER.
--- NOTE | 2019-12-13 20:38 | NUR ---
PATIENT CONVERTED FROM A.FIB WITH RATE OF 118 TO SINUS KATE WITH HR IN 30'S AFTER A 3.33 SECOND PAUSE. DILTIAZEM INFUSION STOPPED BY ASAD BERGERON. HR INCREASED TO 50 AND REGULAR. BP STABLE.
--- NOTE | 2019-12-13 21:45 | NUR ---
MD NOTIFIED OF PATIENT'S LOW URINE OUTPUT, CONVERSION TO SINUS KATE, AND ABD X-RAY FINDINGS. NEW ORDERS IMPUT BY MD. PATIENT IS AROUSABLE BUT RESTING. TOLERATING CPAP. IV BLOUS STARTED PER ORDERS.
--- NOTE | 2019-12-13 22:45 | NUR ---
PATIENT HAS BEEN RESTING. KICKING IN BED AND ATTEMPTING TO REMOVE CPAP. MASK REMOVED. OXYMASK IN PLACE. ATTEMPTS TO REORIENTED THE PATIENT ARE ONLY MILDLY SUCCESSFUL. PATIENT RESPONDS TO HER NAME. ATTEMPTS TO ANSWER QUESTIONS BUT SPEECH IS SEVERELY SLURRED. REPOSITIONED PATIENT IN THE BED. PILLOWS PLACED UNDER LEGS TO PREVENT INJURY. URINE IN CONROY APPEARS TO HAVE A SMALL AMOUNT OF BLOOD. POSSIBLE FROM IRRITATION WITH CONSTANT MOVEMENT. WILL CONTINUE TO MONITOR. URINE OUTPUT ONLY SLIGHTLY INCREASED THIS LAST HOUR.
--- NOTE | 2019-12-13 23:42 | NUR ---
DISCUSSED PATIENT'S ONGOING AGITATION AND DIFFICULTY MAINTAINING O2 SATS >90% WITH . ORDER FOR PRN HALDOL AND ABG NOW RECEIVED. RT NOTIFIED.
--- NOTE | 2019-12-14 00:04 | NUR ---
ABG COMPLETE. PATIENT IS CALM AT THIS TIME. TOLERATING CPAP AT 35% Fi02, O2 SAT 98%.
--- NOTE | 2019-12-14 00:25 | NUR ---
NOTIFIED OF ABG RESULTS. ORDERS FOR BIPAP AND REPEAT ABG RECEIVED.
--- NOTE | 2019-12-14 01:37 | NUR ---
PATIENT TOLERATING BIPAP. RR 16. O2 SAT 99% ON 45% Fi02. RESTING WITH ONLY MINOR AGITATION WHEN STIMULATED.
--- NOTE | 2019-12-14 02:29 | NUR ---
PATIENT REPOSITIONED. NO BM NOTED. ABD FIRM AND MODERATELY DISTENDED. NO BOWEL SOUNDS HEARD, DIFFICULT DUE TO NOISE FROM BIPAP. URINE OUTPUT MINIMAL, CONTINUES TO BE TINTED BY BLOOD. LOTION APPLIED TO ALL EXTREMITIES AND BACK. ORAL CARE DONE. PATIENT TOLERATED POORLY, ONLY OCCATIONALLY FOLLOWING DIRECTIONS. ORAL MOISTURIZER APPLIED. PATIENT DESATS WITH BIPAP OFF TO 86% WITHIN 2-3 MINS. MASK REAPPLIED. PAIENT'S O2 SAT 90% ON 45% Fi02.
--- NOTE | 2019-12-14 04:00 | NUR ---
PATIENT CONTINUES TO BE RESTLESS. DOES NOT ANSWER ORIENTATION QUESTIONS. SPEECH IS SLURRED. TOLERATING BIPAP. O2 SAT 99% ON 45% Fi02. PATIENT HAS APNIC EPISODE AND DESATS TO 80'S. RT AWARE, BIPAP PRESSURES ADJUSTED. EYES CONTINUE TO BE SWOLLEN, FLUSHED FOR COMFORT. URINE OUTPUT QS, BLOOD TINGED URINE NOTED IN TUBE. LOWER EXTREMITIES ELEVATED ON PILLOW. DRESSING ON RIGHT LEG CDI. IV FLUIDS PER ORDER, SITE WNL. HR 60'S. VS STABLE.
--- NOTE | 2019-12-14 05:54 | NUR ---
LAB IN FOR MORNING DRAW. ABG DONE. VS STABLE.
--- NOTE | 2019-12-14 06:05 | NUR ---
MD NOTIFIED OF ABG RESULTS AND SPOKE WITH LALO ARIAS ABOUT PRESSURE CHANGES AND REPEAT ABD IN 90 MINS.
--- NOTE | 2019-12-14 06:21 | NUR ---
ORAL CARE DONE. PATIENT RESPONDS TO HER NAME AND FOLLOWS COMMANDS FOR ORAL CARE. SPEECH IS LIMITED AND DIFFICULT TO UNDERSTAND. PATIENT AGREEABLE AND ALLOWS BIPAP MASK TO BE PUT BACK INTO PLACE. PATIENT HAD SMALL SEMI LIQUID BM. JOSE E CARE DONE AND FRESH ATTENDS IN PLACE. PATIENT REPOSITIONED IN BED AND HOB ELEAVTED.
--- NOTE | 2019-12-14 07:28 | CONS ---
[facility] [address], [place] [address] Signed DATE OF CONSULTATION: 12/13/2019 CHIEF COMPLAINT: Right lower extremity wound. HISTORY OF PRESENT ILLNESS: Marycruz is a 69-year-old lady who lives alone and unfortunately has been using meth. It sounds like she fell four days ago. She ended up in our emergency room on November 28, 2019. She was evaluated and everything came back fine including the x-rays and ultrasound so forth. She had been discharged to home. Apparently, about 3 days later, she went to see her vice president network. It sounds like she was started on Bactrim. Her leg wound was getting worse, so she came back to the emergency room for evaluation. She was admitted last night to the internal medicine service and started on clindamycin. Unfortunately, she is now on full-blown meth withdrawal with atrial fibrillation and rapid ventricular heart rate. There was multiple people in the room obviously trying to help her as she has very poor insight into her current situation. I had been asked to see her as a general surgeon on-call to consider evaluation and debridement of her wound. PAST MEDICAL HISTORY: [place], diabetes, chronic renal insufficiency, COPD, hypothyroidism, and methamphetamine abuse. PAST SURGICAL HISTORY: Includes hysterectomy, appendectomy, bunionectomy, CABG x5 I believe last year, L5-S1 fusion, shoulder surgery, and right total knee replacement. SOCIAL HISTORY: Apparently she smokes, but does not drink. She is using meth. She lives alone and has a friend at [phone]. Her primary care provider is Jacquie Villafana PA-C. FAMILY HISTORY: Not obtainable. REVIEW OF SYSTEMS: Not obtainable. She is now sedated on Valium. ALLERGIES: Lisinopril caused angioedema. MEDICATIONS: She has vitamin B complex, multivitamin, vitamin D, Cymbalta, metformin, atorvastatin, aspirin, clonazepam, and Bactrim. Electronically Signed By: REYNALDO RUANO MD 12/14/19 0728 PATIENT NAME: MARYCRUZ RIVERO CONSULTATION DATE OF : 48 REPORT #: [id number] PHYSICIAN: REYNALDO RUANO MD PCP: JACQUIE VILLAFANA PAC REPORT IS CONFIDENTIAL AND NOT TO BE RELEASED WITHOUT AUTHORIZATION [facility] [address], [place] [address] Signed PHYSICAL EXAMINATION: VITAL SIGNS: Her blood pressure is 178/62; heart rate 63, but it went up into the 140s with AFib; respiratory rate 20; temperature is 97.9; she is 96% on 2 L nasal cannula. She is 5 feet 5 inches at 94 kg. GENERAL: Marycruz is a 69-year-old female, who is lying supine in her ICU bed with multiple people around the bed. She has been sedated on Valium, is still uncooperative with the staff. EXTREMITIES: I can easily see the right lower extremity. She has an area every bit of 5 x 10 cm, which is black, full-thickness eschar. Fortunately, I do not see any drainage and I do not see any erythema surrounding the wound and I do not see any extending up towards the knee. She has multiple chronic areas of scabs on her arms and picking at her arm. She has some other areas of bruising as well. LABORATORY DATA: Her white blood count 7.9, hemoglobin 12, and neutrophils 73. Her BUN is 19, creatinine 1.3, and her glucose 127. Urinalysis was negative. Tox screen showed positive meth. Her lactic acid is 1.4. Liver function tests are negative. TSH is high at 192. Blood and wound cultures are pending. RADIOGRAPHIC STUDIES: A chest x-ray was done and it was read out of some congestion. ASSESSMENT AND PLAN: Marycruz is a 69-year-old female, who unfortunately is now on methamphetamine withdrawal in atrial fibrillation with a rapid ventricular heart rate. She certainly has some black eschar over the right leg, which is going to need to debride once her medical issues settled down. She also has rather significant hypothyroidism at this point. She therefore represents an increased anesthetic and surgical risk currently. I suspect in a few days when things settle down, she will be much safer to take to the operating room. Due to the extent thickness of that wound, she will probably need help at her local [facility] until that heals over two months or so. I doubt take care of this by herself at home based on what I see currently. I have reviewed this with Dr. Mcmanus and her nurse Esmer. I will follow along with the Medical Service. Reynaldo Ruano MD ALB/MODL /[id number] Electronically Signed By: REYNALDO RUANO MD 12/14/19 0728 PATIENT NAME: MARYCRUZ RIVERO CONSULTATION DATE OF : 48 REPORT #: [id number] PHYSICIAN: REYNALDO RUANO MD PCP: JACQUIE VILLAFANA REPORT IS CONFIDENTIAL AND NOT TO BE RELEASED WITHOUT AUTHORIZATION [facility] [address] [place] [address] Signed cc: MD Jacquie Tirado PA-C Copies: REYNALDO RUANO MD, ERIKA PAC ~ Electronically Signed By: REYNALDO RUANO MD 12/14/19 0728 PATIENT NAME: MARYCRUZ RIVERO CONSULTATION DATE OF : 48 REPORT #: [id number] PHYSICIAN: REYNALDO RUANO MD PCP: JACQUIE VILLAFANA REPORT IS CONFIDENTIAL AND NOT TO BE RELEASED WITHOUT AUTHORIZATION
--- NOTE | 2019-12-14 07:30 | NUR ---
patient shift report recieved from maintenance mechanic 2nd shift rn. patient in bed with restraints x2. patient on bipap. respiratory therapy at the bedside. will continue to closely monitor.
--- NOTE | 2019-12-14 09:45 | NUR ---
PATIENT RESTING IN BED AT THIS TIME ON BIPAP AND RESTRAINTS TO BUE WRISTS FOR PATIENTS SAFETY AND TO PREVENT PULLING AT TUBES/CORDS. PATIENT TOELRATING WELL. PATIENTS BREATH SOUNDS ON THE LEFT ARE MORE CLEAR AT THIS TIME. WILL CONTINUE TO TITRATE FIO2 TO MAINTIN SPO2 MID 90'S. 0830 WEANED FIO2 TO 90% AND PATIENT MAINTAINED SPO2 98-100%. TITRATED DOWN AT 0840 TO FIO2 80% WITH SPO2 98-100%. 0845 TITRATED FIO2 TO 70% WITH SPO2 98-100%. 0850 TITRATED FIO2 60% WITH SPO2 95-100%. 0930 TITRATED FIO2 TO 50% AND SPO2 95%. RESPIRATORY THERAPY NOTIFIED OF CHANGES. WILL DO ABG AT 1000. NO OTHER NEEDS AT THIS TIME.
--- NOTE | 2019-12-14 11:06 | NUR ---
PATIENT HAD AN EPISODE OF SPO2 DECREASING TO 78% ON BIPAP. INCREASED FIO2 UP TO 100% AND REPOSITIONED NASAL TRUMPET AND SPO2 INCREASED TO 100%. DECREASED FIO2 BACK TO 40% PER RT. RT NOTIFIED OF SITUATION. NO OTHER NEEDS AT THIS TIME.
--- NOTE | 2019-12-14 13:00 | NUR ---
PATIENT RESTING IN BED WITH BIPAP IN PLACE. PATIENT REMAINS VERY DROWSY. PATIENT DOES NOT APPEAR TO BE ANXIOUS AT THIS TIME, BUT OCCASIOANLLY TRIET TO PULL AT BIPAP. PATIENT HAS RESTRAINTS TO BUE FOR TUBES/LINES PROTECTION. WILL CONTINUE TO CLOSELY MONITOR.
--- NOTE | 2019-12-14 15:10 | NUR ---
PATIENT HAD ECHO COMPLETED AND TOELRATED WELL. WILL CONTINUE TO CLOSELY MONITOR.
--- NOTE | 2019-12-14 15:31 | NUR ---
PATIENT REMAINS ON BIPAP AT THIS TIME. PATIENT OCCASSIONALLY WAKES AND PULLS AT BIPAP. BIPAP REMAINS IN PLACE AT THIS TIME WITH NO OTHER ISSUES. WILL COTNINUE TO CLOSELY MONITOR.
--- NOTE | 2019-12-14 17:07 | NUR ---
Attempted to call emergency contact for information to complete Case Management assessment. Unable to contact at this time. Rn denies family in room.
--- NOTE | 2019-12-14 17:15 | NUR ---
PATIENT BED BATH COMPLETED. PATIENT TOLERATED WELL AND WAS ABLE TO HELP STAFF. NEW LINEN PROVIDED. ORAL CARE DONE. ICE CHIPS PROVIDED. PATIENT ON OXYMASK 4L AT THIS TIME WITH HER SPO2 93%. PATIENT IS ALERT TO PLACE AND DATE, BUT REMAINS LETHARIC AND HER SPEECH IS GARBLED. PATIENT IS FOLLOWING COMMANDS. RESTRAINTS RELEASED SINCE START OF BEDBATH AND PATIENT HAS HAD NO ISSUES. PATIENT IS OCCASIOANLLY PULLING OFF OXYMASK. NO OTHER NEEDS AT THIS TIME. WILL CONTINUE TO CLOSELY MONITOR.
--- NOTE | 2019-12-14 18:47 | NUR ---
UPDATED MD THAT PATIENT HAS BEEN AWAKE BUT DROWSY OFF/ON SINCE 1630 AND BEEN OFF BIPAP SINCE THAT TIME AND TOLERATING WELL. UPDATED THAT PATIENT COMPLINING OF PAIN AND ANXIETY. NEW ORDERS FOR TYLENOL AND VISTARIL. UPDATED THAT PATIENTS HR REMAINS IN THE 50'S HOLD METOPROLOL AT THIS TIME. PATIENT TOELRATED PILLS, PUDDING, AND WATER WITH NO ISSUES. WILL CONTINUE TO CLOSELY MONITOR.
--- NOTE | 2019-12-14 20:38 | NUR ---
1929 - RECEIVED REPORT FROM DAY SHIFT. pt IN BED ROLLING BACK AND FORTH AND MUMBLING. DIFFICULT TO UNDERSTAND. pt IS ORIENTED TO CITY, MONTH, YEAR, AND SELF. DID NOT KNOW SHE WAS IN THE HOSPITAL OR EXACTLY WHY SHE IS HERE. CONROY CARE DONE, SMEAR BM, PERICARE DONE. NEW DEPENDS IN PLACE. pt WAS ABLE TO FOLLOW COMMANDS AND ASSISTED WITH ROLLING. WOULD DESAT FROM TIME TO TIME WHEN SHE WAS MOVING, RECOVERED QUICKLY WITH COACHING, 4L O2 ON OXYMASK. ASSESSMENT DONE. ACCU CHECK WNL. IV ABX INFUSING. DID USE CALL LIGHT FREQUENTLY WHILE THIS RN IN ROOM. 2039- RT IN ROOM TO PUT ON BiPAP. CURTAIN OPEN TO THE NURSES STATION.
--- NOTE | 2019-12-14 20:56 | EKG ---
[facility] [address] [facility] [place] [address] Signed Atrial fibrillation with rapid ventricular response Left bundle branch block T wave abnormality, consider inferolateral ischemia Abnormal ECG When compared with ECG of 13-DEC-2019 00:50, Atrial fibrillation has replaced Sinus rhythm Vent. rate has increased BY [address] now depressed in Inferior leads T wave inversion now evident in Inferior leads Confirmed by PATRICIA WAGONER MD ([id number]) on 12/14/2019 8:56:27 PM Electronically Signed By: PATRICIA WAGONER MD 12/14/192055 PATIENT NAME: MARYCRUZ RIVERO Electrocardiogram DATE OF : 48 PHYSICIAN: PATRICIA WAGONER MD REPORT #: [id number] REPORT IS CONFIDENTIAL AND NOT TO BE RELEASED WITHOUT AUTHORIZATION
--- NOTE | 2019-12-14 21:40 | NUR ---
IV MED GIVEN (SEE MAR). pt RESTING ON BiPAP, EYES CLOSED, O2 SAT 100%. CALL LIGHT WITHIN REACH. CURTAIN OPEN TO NURSES STATION.
--- NOTE | 2019-12-14 22:35 | NUR ---
pt RESTING ON BiPAP, O2 SAT 98%. CURTAIN OPEN TO NURSES STATION.
--- NOTE | 2019-12-14 23:00 | NUR ---
2054 EPAP AND IPAP ADJUSTED TO CORRECT OBSTRUCTION WHILE SLEEPING.
--- NOTE | 2019-12-15 00:28 | NUR ---
ASSESSMENT DONE. pt SLEEPING, DID NOT WAKE FOR ASSESSMENT pt IS TOLERATING BiPAP AT THIS TIME. O2 SAT 100% FiO2 OF 50%. CURTAIN OPEN TO NURSES STATION. NO CHANGES IN ASSESSMENT.
--- NOTE | 2019-12-15 02:00 | NUR ---
ACCU CHECK COMPLETED, WNL. SCHEDULED MED GIVEN (SEE MAR). pt TOLERATING BiPAP. CURTAIN OPEN TO NURSES STATION.
--- NOTE | 2019-12-15 02:47 | NUR ---
UPDATED MD ON pt's BLOOD GLUCOSE, ORDER TO CHANGE FLUIDS, ORDER ENTERED.
--- NOTE | 2019-12-15 03:04 | NUR ---
NEW BAG OF FLUIDS HUNG. pt RESTING ON BiPAP, CURTAIN OPEN TO NURSES STATION.
--- NOTE | 2019-12-15 03:15 | NUR ---
RT IN TO ASSESS pt. FiO2 DECREASED TO 40%. pt SATS 100%
--- NOTE | 2019-12-15 04:51 | NUR ---
0400 IN TO DO ASSESSMENT. LINENS CHANGED. PERICARE AND CONROY CARE DONE. pt ASSISTED WITH ROLLING. LUNG SOUNDS DIFFICULT TO HEAR OVER pt SNORING AND BiPAP. NO OTHER CHANGES NOTED. RT IN TO CHECK BiPAP FOR LEAKING, pt REQUESTED A BREAK, ON OXYMASK 4L SAT 98%. CURTAIN OPEN TO NURSES STATION. ROOM TIDIED.
--- NOTE | 2019-12-15 05:49 | NUR ---
pt CALLED "NURSE" REPOSITIONED pt PER REQUEST. pt ORIENTED TO PLACE AND SELF. REPORTED "I'M UNCOMFORTABLE" COMFORT IMPROVED WITH REPOSITIONING. CALL LIGHT WITHIN REACH. CURTAIN OPEN TO THE NURSES STATION.
--- NOTE | 2019-12-15 06:54 | NUR ---
IV MED GIVEN (SEE MAR). pt ASKING ABOUT PLAN OF CARE. ORIENTED TO SITUATION AT THIS TIME. pt RESTLESS. SAT 99% ON 5L O2. CURTAIN OPEN TO NURSES STATION.
--- NOTE | 2019-12-15 07:30 | NUR ---
PATIENT ALERT AND ORIENTED TO NAME, PLACE, AND DATE. PATIENT IS DROWSY AT TIMES. SHIFT REPORT RECIEVED FROM HAZMAT TANKER DRIVER RN. WILL CONTINUE TO CLOSELY MONITOR.
--- NOTE | 2019-12-15 09:30 | NUR ---
PATIENT RESTING IN BED ON 3L OXYMASK. PATIENT OCCASIOANLLY PULLS MASK OFF. REMINDED PATIENT SHE NEEDS TO LEAVE OXYGEN MASK IN PLACE. PATIENT DOES CALL OUT FOR STAFF. ASSESSMENT COMPLETED. PATIENT BREATH SOUNDS CLEAR ON RIGHT AND DIMINISHED ON LEFT. PATIENT LEG REMAINS WRAPPED AT THIS TIME. MD WAGONER WILL BE IN TO SEE PATIENT. WILL CONTINUE TO CLOSELY MONITOR.
--- NOTE | 2019-12-15 12:00 | NUR ---
PT LAYING IN BED, BREATHING IS DIFFICULT FOR PT AND HARD TO TALK. PT WAS ON POINT, SAID SHE IS FEELING BETTER, THANKED ME FOR COMING BY. REQUESTED FOR ME TO PRAY FOR HER, AND REQUESTED I COME BACK. WILL FOLLOW NEEDED
--- NOTE | 2019-12-15 12:00 | NUR ---
ASSISTED PATIENT UP TO THE CHAIR. PATIENT WAS A STAND-BY ASSIST. PATIENT TOELRATED WELL, BUT ONCE SHE WAS IN THE CHAIR PATIENT WANTED TO GO BACK TO BED IMMEDIATELY. ENCOURAGED PATIENT TO STAY UP IN THE CHAIR AND EAT SOME LUNCH. WILL CONTINUE TO CLOSELY MONITOR.
--- NOTE | 2019-12-15 13:15 | NUR ---
PATIENT BACK TO BED AFTER USING THE CAMMODE. ATTENDS IN PLACE. PATIENT ATE APPROX 20% OF HER LUNCH. WILL CONTINUE TO CLOSELY MONITOR.
--- NOTE | 2019-12-15 14:15 | NUR ---
PT AWAKE TODAY AND ABLE TO ANSWER QUESTIONS. PT LIVES IN [place] ALONE. DENIES ANY FAMILY. STATES SHE HAS A FRIEND ALI, BUT IS UNABLE TO REMEMER HER LAST NAME OR PHONE NUMBER. PT DRIVES, STATES SHE IS RETIRED FROM [facility] [facility]. 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 DISCUSSED WHERE SHE WOULD LIKE TO DC TO ON DISCHARGE AND SHE STATES HOME, BUT WOULD GO TO A SNF IF NEEDED DUE TO DECONDITIONING.
--- NOTE | 2019-12-15 15:34 | NUR ---
CALLED MD WAGONER TO UPDATED ABOUT PATIENTS HEART RHYTHM. PATIENTS HR IS IRRITABLE AND GOES FROM 40'S-90'S AND MORE PVCS THAN PRIOR IN THE SHIFT. PATIENT ALSO STATES, I FEEL SO ANXIOUS/RESTLESS AND JUST CANT STOP THINKING. NEW ORDER FOR VISTARIL. PATIENT PLACED ON BIPAP PRIOR TO CALLING MD AND IS RESTING NOW AT THIS TIME. PATIENT IS TOLERATING BIPAP AT THIS TIME. WILL GIVE PRN ANXIETY MEDICATIONS WHEN PATIENT IS AWAKE AND NEEDS THEM. NO OTHER NEEDS AT THIS TIME. WILL CONTINUE TO CLOSELY MONITOR.
--- NOTE | 2019-12-15 18:26 | NUR ---
PATIENT CONTINUES TO SLEEP WITH THE BIPAP IN PLACE. PATIENT HAS REMAINS ALERT AND ORIENTED TODAY AND IS APPROPRIATE WITH STAFF. NO RESTRAINTS NEEDED. WILL CONTINUE TO CLOSELY MONITOR.
--- NOTE | 2019-12-15 19:01 | NUR ---
patients blood sugar was 80 this evening. patient ate some pudding and had an apple juice will follow-up blood sugar check. no other needs at this itme. will continue to closely monitor.
--- NOTE | 2019-12-15 19:45 | NUR ---
SHIFT REPORT RECEIVED. PATIENT RESTING IN BED. TURNING SIDE TO SIDE. ASSISTED PATIENT TO GET COMFORTABLE. 3L OXYMASK IN PLACE, O2 SAT 97%. RR 16. PATIENT DENIES FURTHER NEEDS. CALL LIGHT IN REACH.
--- NOTE | 2019-12-15 21:00 | NUR ---
PATIENT SLEEPING SOUNDLY. 3L OXYMASK IN PLACE, O2 SAT 98%. PATIENT WAKES EASILY. SPEECH IS SLIGHTLY SLURRED. PATIENT FOLLOWS COMMANDS TO SIT AT EDGE OF BED. PATIENT BRUSHED HER OWN TEETH AND USED WASH CLOTH TO CLEAN HE FACE. THIS RN BRUSHED HER HAIR. PATIENT PLESANT AND THANKS STAFF FOR GOOD CARE. PRN TYLENOL PROVIDED FOR BACK PAIN 5/10. AND PRN VISTARIL FOR ANXIETY. PATIENT ALLOWED BIPAP TO BE PLACED. LUNG SOUNDS ARE COARSE IN UPPER LOBES WITH DIMINISHED FINE CRACKLES IN BIANCA BASES. GENERALIZED EDEMA NOTED IN BIANCA UPPER EXTREMITIES. IV SITE IN RIGHT AC IS LEAKING AND BLEEDING, IV SITE DC. SKIN TEAR SLIGHTLY DISTAL TO AC COVERED WITH BACITRACIN AND GAUZE. SKIN TEARS ON UPPER LEFT ARM REMAIN COVERED, NO DRAINAGE NOTED. IV FLUIDS INFUSING PER ORDER IN LEFT FOREARM. SITE WNL. DRESSING IN RIGHT LOWER LEG CDI, LEFT IN PLACE. SKIN ON LEFT LOWER LEG IS RED AND WARM TO TOUCH. LOTION APPLIED. CONROY CARE DRAINING LARGE AMOUNT OF DILUTE URINE. CONROY CARE DONE. PATIENT DENIES ANY OTHER NEEDS AT THIS TIME. CALL LIGHT IN HAND. PATIENT LAYING ON HER SIDE IN BED, BIPAP ON.
--- NOTE | 2019-12-15 21:30 | NUR ---
PATIENT'S SISTER JOSH CALLED TO GET A REPORT ON THE PATIENT'S CONDITION. PATIENT AGREED THAT HER SISTER COULD BE FULLY INFORMED. PATIENT SPOKE TO HER SISTER AND THEN THIS RN PROVIDED BASIC INFORMATION ON PATIENT'S STATUS. SHEELA'S NUMBER IN CHART FOR FUTURE REFERENCE.
--- NOTE | 2019-12-15 22:30 | NUR ---
PATIENT SLEEPING SOUNDLY WITH BIPAP IN PLACE. IV SITE INFUSING, APPEARS WNL. VS STABLE. 100% O2 SAT ON 35% Fi02. RR 16. URINE OUTPUT QS. ALLOWED PATIENT TO REST.
--- NOTE | 2019-12-16 00:30 | NUR ---
PATIENT ATTEMPTING TO TURN OVER IN BED. ASSISTED PATIENT AND AADJUSTED BIPAP MASK NEEDED. PATIENT DENIES ANY NEEDS AT THIS TIME. LUNG SOUNDS ARE DIMINISHED BY SOUND OF BIPAP, AIR MOVEMENT HEARD THROUGHOUT. CONROY DRIANING QS CLEAR YELLOW URINE. DRESSING ON RIGHT LOWER EXTREMITY CDI. COVERED PATIENT WITH WARM BLANKET. CALL LIGHT IN REACH. IV FLUIDS PER ORDER, SITE WNL.
--- NOTE | 2019-12-16 01:34 | NUR ---
PATIENT TOOK BIPAP MASK OFF. OXYMASK IN PLACE, 3L. PATIENT REPORTS BEING COLD, WARM BLANKET PROVIDED. PATIENT REPOSIIONED UP IN BED WITH HOB ELEVATED. DENIES FURTHER NEEDS. CALL LIGHT IN REACH.
--- NOTE | 2019-12-16 02:15 | NUR ---
PATIENT BACK ON BIPAP AT THIS TIME. ATTEMPTING TO SLEEPING. DIFFICULTY GETTING COMFORTABLE. ASSISTED PATIENT TO TURN IN BED. PATIENT FRUSTERATED WITH MONITOR CORDS, LINES ORGANIZED TO MAZIMIZE PATIENT'S ABILITY TO MOVE IN BED. PATIENT DENIES ANY OTHER NEEDS. VS STABLE. IV FLUIDS PER ORDER, SITE WNL.
--- NOTE | 2019-12-16 03:55 | NUR ---
PATIENT REPORTS BEING UNCOMFORTABLE IN BED AND REQUEST TO STAND UP WHILE SHEETS BE SMOOTHED OUT. PATIENT STOOL AT THE BEDSIDE WITH THE FWW AND ONLY STAND BY STAFF ASSIST. BED LINEN SMOOTHED. PATIENT APPEARED STEADY ON HER FEET. PATIENT RETURNED TO BED. ATTEMPTS TO PLACE BIPAP WERE UNSUCESSFUL. PATIENT STATES SHE CANNOT "GET USED TO" THE MASK AT THIS TIME AND REFUSES TO KEEP MASK ON. EDUCATED PATIENT ON IMPORTANT OF THE BIPAP TREATMENT. PATIENT CONTINUES TO REFUSE. OXYMASK 3L PLACED.
--- NOTE | 2019-12-16 04:37 | NUR ---
PATIENT REPORTS BACK PAIN AND IS FINDING IT DIFFICULT TO SLEEP OR REST. ASSISTED PATIENT UP TO THE RECLINER. PATIENT DOES NOT LIKE SITTING UP EITHER. PATIENT RETURNED TO BED. PILLOWS PLACED BEHIND BACK AND BETWEEN KNEES WHILE PATIENT ON HER RIGHT SIDE. REPORTS BEING COMFORTABLE AT THIS TIME. TOLERATED ACTIVITY WELL. SURGICAL CONSENT SIGNED WHILE PATIENT UP IN CHAIR. PATIENT AWARE OF THE PROCEDURE AND DENIES ANY QUESTIONS. 3L OXYMASK IN PLACE. PATIENT REFUSING TO ATTEMPT BIPAP AT THIS TIME. ENCOURAGED PATIENT TO REST. CALL LIGHT IN REACH.
--- NOTE | 2019-12-16 06:24 | NUR ---
PRE-PROCEDURE WIPE DOWN DONE. NEW GOWN PLACED. PATIENT FREQUENTLY DROWSEY. PATIENT SITTING UP TO EDGE OF THE BED AND NODDING OFF DURING THE ACTIVITY. PATIENT RETURNED TO LAYING DOWN. 2ND IV SITE ATTEMPTED X2 WITH NO SUCESS. CONROY EMPTIED FOR LARGE AMOUNT OF CLEAR YELLOW URINE.
--- NOTE | 2019-12-16 06:48 | NUR ---
DISCUSSED PATIENT'S IRREGULAR HR AND RHYTHM WITH DR. WAGONER AND DR. RUANO. ALSO DISCUSSED PATIENT'S ELEVATED BP AND COGNITIVE STATUS. ABG ORDERED BY . RT NOTIFIED.
--- NOTE | 2019-12-16 07:09 | NUR ---
0615 PATIENT BACK ON BIPAP, TOLERATING WELL. 0700 PATIENT CONTINUES TO TOLERATE BIPAP, O2 SAT 99%, RR 19
[2019-12-16] MEDS ORDERED: INCRUSE ELLI62.5 MCG INH (08:36)
[2019-12-16] MEDS ORDERED: VENTOLIN HFA18 GM INH (08:37)
--- NOTE | 2019-12-16 09:15 | NUR ---
PT TO THE OR AREA AT THIS TIME.
--- NOTE | 2019-12-16 11:32 | NUR ---
RECEIVED PT BACK FROM OR ON VENT AT THIS TIME. PT RASS-3 AT THIS TIME. RESTRAINTS PLACED TO PROTECT LINE AND ET TUBE. SEE RT NOTES FOR SETTINGS. 1200 PT CHANGED FROM VENT TO BIPAP/WEARING. PT IS MORE AWAKE FOLLOWS DIRECTIONS AND IS ABLE TO OPEN EYES. SCD INPLACE ON LEFT LEG, RIGHT LEG DRESSING IS CLEAN DRY AND INTACK (CDI).
--- NOTE | 2019-12-16 12:11 | NUR ---
WENT TO CHECK ON PT-TAKEN TO SURGERY. WILL FOLLOW NEEDED
--- NOTE | 2019-12-16 12:35 | NUR ---
PT IS ON BIPAP AT THIS TIME 05/10 AND 40% FIO2 97% AT THIS TIME.
--- NOTE | 2019-12-16 12:45 | NUR ---
PT GIVEN 4 MG IV HALDOL FOR HALUCINATIONS "YOU ARE KILLING MY BABIES", AND FOR THRASHING IN BED, KICKING LEGS VIOLENTLY.
--- NOTE | 2019-12-16 12:50 | NUR ---
PT YELLING OUT LOUD WITH BIPAP INPLACE. WAS MEDICATED. RESTRAINTS REMAIN ON AT THIS TIME TO KEEP BIPAP INPLACE AND TO PROTECT LINES.
--- NOTE | 2019-12-16 13:40 | NUR ---
PT IS SLEEPING AT THIS TIME. RIDING BIPAP AT THIS TIME WITH A FIO2 99%. RESP RATE OF 14.
--- NOTE | 2019-12-16 14:00 | NUR ---
Spoke briefly with Antonia. She is very tired. Asked if she has cyber instructor permission for friend Mariely to drive her car and live in her house. She states, yes. Rn was concerned as friend called and stated she had moved into pt's home and was driving her care. Pt has consented for her to do so.
--- NOTE | 2019-12-16 14:39 | NUR ---
RESTRAINTS REMOVED AT THIS TIME, PT HAS BEEN ASLEEP AND HAS NOT TRIED TO PULL AT BIPAP.
--- NOTE | 2019-12-16 15:27 | NUR ---
PT REMAINS ASLEEP AND RIDING THE BIPAP AT THIS TIME. PT IS TURNING SELF WELL AND RESTRAINTS REMAIN OFF AT THIS TIME.
--- NOTE | 2019-12-16 17:16 | NUR ---
PT TURNED FROM SIDE TO SIDE CLEANED UP SMEAR OF BM AND PT COOPERATIVE WITH THIS. PT REPOSITIONED AND GIVEN WARM BLANKETS. PT RESTRAINTS REMAIN OFF AT THIS TIME.
--- NOTE | 2019-12-16 17:36 | NUR ---
PT OFF CPAP AT THIS TIME TO TAKE PO MEDICATIONS. DID WELL WITH MEDICATIONS. PT PLACED ON NC AT 3L'S WITH A SPO2 OF 95%. WHEN PT IS ON ROOM AIR SHE WILL DROP TO 87 %. PT DENIES PAIN AT THIS TIME. RIGHTCALF DRESSING REMAINS CDI AT THIS TIME.
--- NOTE | 2019-12-16 17:54 | NUR ---
PT AWAKE AND FOLLOWING DIRECTIONS AT THIS TIME, COOPERATIVE WITH HOSPITAL ROUTINE, CALL LIGHT WITHIN REACH, SIDE RAILS X4. BED IN LOW POSITION AND ACROSS FROM THE NURSING STATION.
--- NOTE | 2019-12-16 18:37 | NUR ---
PT AWAKE, BIPAP OFF AT THIS TIME AND ON 3L'S VIA NC. LONG PT IS AWAKE AND HOB ELEVATED SPO2 95%, BUT WHEN PT REMOVES O2 SPO2 DECREASE TO 68% ON ROOM AIR. PT IS COOPERATIVE WHEN ASKE TO PLACE THE O2 BACK ON. PT IS FOLLOWING CONVERSATION WITH STAFF. PT ASKED "HOW DID SURGERY GO" EXPLAINED WELL AND THAT HER DRESSING WILL NEED TO BE CHANGED TWICE A DAY. ALSO TOLD HER HER SISTER HAS CALLED AND CHECKED UP ON HER. "THE NEXT TIME SHE CALLS I WILL TALK WITH HER"
--- NOTE | 2019-12-16 18:48 | NUR ---
PT BACK ON CPAP AT THIS TIME SPO2 INCREASED TO 98%.
--- NOTE | 2019-12-16 19:46 | NUR ---
SHIFT REPORT RECEIVED. PATIENT APPEARS TO BE SLEEPING SOUNDLY. RR 16. ON BIPAP. O2 SAT 97%. 35% Fi02.
--- NOTE | 2019-12-16 21:00 | NUR ---
PATIENT WOKE EASILY. ORIENTED TO PERSON AND PLACE. DENIES PAIN. OFF BIPAP TO 3L NC. ORAL CARE PROVIDED. PATIENT LUNG SOUNDS ARE CLEAR, SNORE OCCATIONAL EVEN WHILE AWAKE. VS STABLE. ABD SOFT, BOWEL SOUNDS ACTIVE. URINE OUTPUT CLEAR YELLOW, CONROY CARE DONE. DRESSING ON RIGHT CALF REMOVED. MODERATE AMOUNT OF BLEEDING. PATIENT UNABLE TO TOLERATE WOUND PACKING AT THIS TIME. PRESSURE APPLIED WITH 2 ABDs AND UNIQUE WRAP PLACED OVER ABD FOR CONTINUED PRESSURE. ELEVATED EXTREMITY ON PILLOW. PRN PAIN MEDS PROVIDED. PATIENT BACK ON BIPAP.
--- NOTE | 2019-12-16 22:29 | OR ---
[facility] [address], [place] [address] Signed DATE OF OPERATION: 12/16/2019 SURGEON: Reynaldo Ruano MD PREOPERATIVE DIAGNOSIS: Right lateral calf wound (eschar), 10 x 7.5 cm. POSTOPERATIVE DIAGNOSIS: Right lateral calf wound (eschar), 10 x 7.5 cm. PROCEDURES PERFORMED: 1. Sharp debridement, right lower extremity wound (97.5 cm2). 2. Deep wound cultures. ESTIMATED BLOOD LOSS: None. INDICATIONS: Marycruz is a 69-year-old female who lives alone and unfortunately is involved with methamphetamines. She apparently had been to our emergency room roughly a week prior to this admission with an injury to her right lateral calf area. Her initial evaluation, x-rays and so forth and ultrasound all seemed to be unremarkable. She had come back and the wound had been worsening. She ended up on our internal medicine service. She has been in withdrawal from methamphetamines. The overlying skin on the right little calf has turned black. It measures 13 x 7.5 cm. I have been asked to see her as a general surgeon on-call. She has been on Rocephin and doxycycline. Her superficial wound cultures have grown out routine Staph aureus. However, I do not see any local signs or symptoms of infection, particularly cellulitis. Certainly, she has full-thickness black eschar that needs to be debrided. Also, her diabetes was uncontrolled along with her hypothyroidism. She has been here a couple days now on the Medical Service with improvement in her overall medical condition. After talking with Internal Medicine Service with Marycruz, we decided to take her to the operating room today to sharply debride that area. She understands the nature of the surgery and that the wound be left open with dressing changes. In a week, 10 to 14 days once it granulates a bit we will be able to skin graft that and cover that over for her. She understands the expected intraop and postop course. There is risk to that surgery including, but not limited to bleeding, infection, scarring, change in contour of the skin, and need for additional procedures. She had expressed understanding and wished to proceed. PROCEDURE NOTE: Electronically Signed By: REYNALDO RUANO MD 12/16/19 2229 PATIENT NAME: MARYCRUZ RIVERO OPERATIVE REPORT DATE OF : 48 REPORT #: [id number] PHYSICIAN: REYNALDO RUANO MD PCP: MARLYS SIMON PAC REPORT IS CONFIDENTIAL AND NOT TO BE RELEASED WITHOUT AUTHORIZATION [facility] [address], [place] [address] Signed Marycruz was taken into our operating room and placed in the supine position under general endotracheal tube anesthesia. She was already on preoperative antibiotics and subcutaneous Lovenox. We used an SCD on the left lower extremity. The right lower extremity was then prepped and draped in the usual sterile fashion. A Palmer catheter was already in place from our ICU. After this, we used our 10 blade knife and we simply excised the black eschar back to bleeding edge of her skin. This lifted off in one large piece. Underneath, we evacuated large amounts of very dark, almost black hematoma down to the level of the muscle. The wound was extended toward her ankle, probably another 3 or 4 cm and we had that overlying skin was also . We cut that back with our 10 blade knife until we had bleeding healthy skin. After this, saline soaked gauze was placed into the wound. This was covered with dry ABD, wrapped with 4 inch Kerlix gauze and then a 4 inch Morris wrap. Marycruz was left intubated. In serious condition she was transferred to her hospital bed and taken to ICU in stable condition. Reynaldo Ruano MD ALB/MODL /[id number] cc: MD Marlys Tirado PA-C Copies: REYNALDO RUANO MD, ERIKA PAC ~ Electronically Signed By: REYNALDO RUANO MD 12/16/19 2229 PATIENT NAME: MARYCRUZ RIVERO OPERATIVE REPORT DATE OF : 48 REPORT #: [id number] PHYSICIAN: REYNALDO RUANO MD PCP: MARLYS SIMON PAC REPORT IS CONFIDENTIAL AND NOT TO BE RELEASED WITHOUT AUTHORIZATION
--- NOTE | 2019-12-16 22:30 | NUR ---
PATIENT MEDICATED PRIOR TO WOUND PACKING. AREA FLUSHED WITH STERILE NS. 4x4 GAUZE WET WITH NS PACKED INTO WOUND. AREA COVERED WITH ABD X2, KERLEX AND UNIQUE WRAP. PATIENT TOLERATED WELL. CONTINUES TO WEAR BIPAP. VS STABLE.
--- NOTE | 2019-12-17 00:18 | NUR ---
PATIENT SLEEPIG SOUNDLY WITH BIPAP IN PLACE. DRESSING ON RIGHT CALF CDI. VS STABLE. URINE OUTPUT DECREASED, 40ML FOR LAST 3 HOURS. CONROY FLUSHED AND REPOSITIONED FOR BETTER DRAINAGE. PATIENT CONTINUES TO MOVE FREQUENTLY IN THE BED AND REQUIRED CONROY AND ONTHER LINES TO BE UNTANGLED. PATIENT DENIES ANY NEEDS.
--- NOTE | 2019-12-17 02:00 | NUR ---
PATIENT CONTINUES TO SLEEP WELL WITH BIPAP IN PLACE. WAKES EASILY WHEN RN IN ROOM AND THEN CLOSES EYES WHEN NOT BEING ENGAGED. PATIENT MOVES FREQUENTLY IN THE BED. ASSISTED PATIENT TO LAY ON HER LEFT SIDE. IV FLUIDS PER ORDER, SITE WNL. BED ALARM ON. CALL LIGHT IN REACH.
--- NOTE | 2019-12-17 04:30 | NUR ---
PATIENT REMOVED THE BIPAP MASK AND ASKED FOR A BREAK. 3L NC IN PLACE. PATIENT CONITNUES TO ANSWER QUESTIONS APPROPRIATELY, BUT CLOSES HER EYES WHEN NOT BEING SPOKEN TO. PATIENT REPOSITIONED IN BED. RIGHT LEG ELEVATED ON PILLOW, DRESSING CDI. IV FLUIDS PER ORDER, SITE WNL.
--- NOTE | 2019-12-17 06:51 | NUR ---
PATIENT RESTING IN BED WITH EYES CLOSED BUT WOKE WHEN RN ENTERED ROOM. IS ABLE TO HOLD A CONVERSATION AND IS REQUESTING BREAKFAST. SECOND IV SITE STARTED IN RIGHT FOREARM. PATIENT TOLERATED WELL. ASSISTED PATIENT TO REPOSITION. IV FLUIDS INFUSING PER ORDER. ASSISTED PATIENT TO WASH HER FACE. PATIENT DENIES ANY OTHER NEEDS. CALL LIVE ROSENBERG. ON 3L NC.
--- NOTE | 2019-12-17 07:30 | NUR ---
REPORT RECIEVED. PATIENT IS IN BED WITH BIPAP ON.
--- NOTE | 2019-12-17 08:00 | NUR ---
ASSESSMENT DONE. O2 TO 2 L NC. BIPAP OFF PATIENT TRANSFERED TO CHAIR, O2 TO 2 L NC. IS UNSTEADY ON FEET. PIVIOT FROM BED TO CHAIR. DR. RUANO HERE TO SEE PATIENT. DIET INCREASED TO 60 GM CARB. BREAKFAST ORDERED.
--- NOTE | 2019-12-17 09:00 | NUR ---
TOOK BREAKFAST FAIR. RESTLESS IN CHAIR.
--- NOTE | 2019-12-17 09:30 | NUR ---
BACK TO BED. IV TO RIGHT INNER FA INFILTARTED. IV SITE TO LEFT INNER FA LEAKING. NEW IV SITE 22 GA STARTED TO RIGHT FA.
--- NOTE | 2019-12-17 10:00 | NUR ---
DR. WAGONER HERE TO SEE PATIENT. DRESSING TO RIGHT LEG OFF DR. WAGONER WANTS TO ASSESS. DRESSING CHANGE TO RIGHT LEG CHANGED PER ORDERS, TOLERATED WELL. FOOT SCD TO RIGHT FOOT ON, LEG SCD TO LEFT LEG.
--- NOTE | 2019-12-17 11:00 | NUR ---
CONROY CATH DC'D PER ORDERS AND EMPTIED FOR 400 CC OF CLEAR MELANIE URINE.
--- NOTE | 2019-12-17 11:45 | NUR ---
UP TO COMMODE TO EXPELL EXTRA-LARGE SOFT BROWM STOOL. BACK TO BED WITH ASSIST.
--- NOTE | 2019-12-17 12:00 | NUR ---
REPORT TO MED-SURG.
--- NOTE | 2019-12-17 12:10 | NUR ---
SITTING UP IN BED TO TAKE LUNCH.
--- NOTE | 2019-12-17 12:35 | NUR ---
TOOK ENSURE WELL. DRESSING TO RIGHT LEG INTACT.
--- NOTE | 2019-12-17 12:35 | NUR ---
PATIENT ARRIVED FROM CCU. VITALS STABLE, O2 IN PLACE 2L NC, 96% SATS. RT LEG UNIQUE WRAPPED. PATIENT REPORTS NO PAIN. PATIENT INCONTINENT SOON AFTER ARRIVAL OF LARGE LOOSE STOOL (LACTULOS ADMINISTERED PREVIOUS TO MED/SURG ADMISSION). PATIENT UP TO COMMODE 1 PERSON ASSIST, STAND AND PIVOT). LINENS/GOWN/ BRIEF CHANGED. PATIENT STAND AND PIVOT 1PA BACK TO BED. BED ALARM ON AND CALL LIGHT IN REACH.
--- NOTE | 2019-12-17 13:57 | NUR ---
PT'S CPOX ALARM WENT OFF, RN RESPONDED AND O2 SATS WERE 82%. NASAL CANULA WAS ON THE FLOOR NEXT TO THE BED, PT WAS SLEEPING. RN WOKE PT UP, REPLACED O2, HAD HER TAKE DEEP BREATHS AND O2 RETUNED TO 95-97%. PT ASKED FOR BRIEF CHANGE. COMPLETED.
--- NOTE | 2019-12-17 14:12 | NUR ---
PATIENT IN BED RESTING. FRESH WATER GIVEN. CALL LIGHT IN REACH. NO FURTHER NEEDS AT THIS TIME.
--- NOTE | 2019-12-17 14:20 | NUR ---
PATIENT LYING IN BED FLAT. EYES PARTIALLY OPEN. CPOX ALARM ALERTING. O2 LEVELS AT 78%. NC OFF FACE. INCREASED O2 TOO 5L TO RAISE O2 LEVEL. ELEVATED HOB. O2 RECOVERED AFTER 2 MINUTES. SATS NOW 94% ON 2L NC. SCD'S IN PLACE. BED ALARM ACTIVATED. CALL LIGHT IN REACH.
--- NOTE | 2019-12-17 16:04 | NUR ---
BLADDER SCANNED PT 5 HOURS POST CATHETER REMOVAL. 263 TOTAL VOLUME. WILL CONTINUE TO MONITOR FOR FIRST VOID. SATS AT 95% ON 2L NC. PT COMPLAINS OF SORE NECK ON LEFT. REPOSITIONED PATIENT ON SIDE AND PLACED WARM PACK. SCD'S IN PLACE. CALL LIGHT IN REACH.
--- NOTE | 2019-12-17 18:19 | NUR ---
PT REQUESTING CLONAZAPAM. SISTER REQUESTING VISIT FROM THE DOCTOR FOR UPDATE. DR WAGONER NOTIFIED AND WILL PUT IN DIFFERENT MEDICATION TO ASSIST PT WITH SLEEP TONIGHT. SISTER REPORTS SHE IS NOT A MORNING PERSON FOR ROUNDS TOMORROW, BUT I ASSURED HER SHE COULD RECEIVE A CALL WITH UPDATE FROM THE DR TOMORROW AFTER ROUNDS. SISTER AGREEABLE.
--- NOTE | 2019-12-17 18:37 | NUR ---
PATIENT UP TO BATHROOM AND BACK TO BED, 1PA FWW. CALL LIGHT IN REACH. NO FURTHER NEEDS A TTHIS TIME.
--- NOTE | 2019-12-17 18:38 | NUR ---
PATIENT AMBULATED 1PA FWW TO BATHROOM. RETURNED TO BED, DECLINED TO FINISH DINNER. PT IS REQUESTING SOMETHING TO HELP HER SLEEP TONIGHT. NO REPORTS OF PAIN. SATS 94% ON 2L NC. SCD'S IN PLACE. PROVIDER HAS BEEN NOTIFIED OF REQUEST. CALL LIGHT IN REACH.
--- NOTE | 2019-12-17 20:15 | NUR ---
CHANGED SOILED ATTENDS WITH BOWEL MOVEMENT BY THIS DRY YARD WORKER AND FLOAT DRY YARD WORKER.
--- NOTE | 2019-12-17 21:14 | NUR ---
On 2LNC, lungs with faint crackles at bases and dim. aiyana. Was incontinent of urine and bowel, skin care done, barrier cream applied. clean attends inplace. scds L leg, foot compression R leg. Dressing changed R lateral Calf wound 7.5inX 1in X 3in, dark red, thick drainage noted at base, wound red-pink, no odor. saline wet gauze, covered with kerlix, abd applied and covered with glory wrap. procedure explained, pt coop. medicated iwth tylenol 500mg po prior to. Coop with assessment. multiple bruising over Lhip and buttocks area, scabbed over and healing area over arms, legs. legs elevated, hob elevated. Took Melatonin for sleep.Bed alarm on per high fall risk precautions, cbg 131, no coverage needed, alert and oriented, no further c/o pain or sob stated
--- NOTE | 2019-12-17 21:43 | NUR ---
PT UTILIZES CALL LIGHT, REQUESTS TO LAY ON HER SIDE. CLAM DREDGE BOAT CAPTAIN TO ROOM, PT ALREADY LAYING ON HER SIDE. CLAM DREDGE BOAT CAPTAIN ATTEMPTS TO CLARIFY AND ASSIST PT TO LAY FURTHER ONTO R SIDE. PT UNAHPPY WITH THIS SOLUTION, STATES THAT SHE WANTS HER LEGS OUT OF BED. PT ENCOURAGED TO STAY IN BED TO TURN ONTO HER SIDE. PT PUTTING LEGS OUT OF BED AND THEN INTO BED REPEATEDLY. STATES THAT CLAM DREDGE BOAT CAPTAIN "THANKS FOR NOTHING". CLARIFIED THAT IF PT TELLS CLAM DREDGE BOAT CAPTAIN WHAT SHE WOULD LIKE TO DO, WILL PROVIDE ASSISTANCE. PT WOULD LIKE HER ARM ELEVATED ON PILLOW, ASSISTED. PT THEN STATES "NO I WANT MY ARM UNDER THE PILLOW". ASSISTED TO MOVE HER ARM. PT ASSISTED TO PLACE A PILLOW BETWEEN HER LEGS. PILLOW REMOVED FROM BEHIND HER BACK. BLANKETS REPLACED. CLAM DREDGE BOAT CAPTAIN ASKS IF PT IF SHE IS FEELING MORE COMFORTABLE THAN BEFORE. PT STATES "I WAS NEVER UNCOMFORTABLE". WRTIER ASKS IF PT IS FEELING COMFORTABLE IN THE POSITION SHE IS IN. PT SHOUTS LOUDLY, "YES!". I REMINDED PT THAT SHE DOES NOT NEED TO YELL WHEN STAFF ARE ASSISTING HER. PT STATES "TRY NOT BEING A GRUMPY SHIT". PT ENCOURAGED TO CALL FOR FURTHER NEEDS. CALL LIGHT IN REACH.
--- NOTE | 2019-12-18 00:16 | NUR ---
ANSWERED CALL LIGHT. 1 PA GOT UP AND DANGLE IN BED FOR 10 MINUTES. PATIENT IS BACK LYING ON BED. CALL LIGHT IN REACH. SCD BACK ON. BED ALARM ON FOR SAFETY.
--- NOTE | 2019-12-18 01:52 | NUR ---
up to br, was incontinent of urine plus voided large amont of urine in toilet, had small soft bm. back to bed, )[address] place, 1PA/FWW tolerated well. scds back on. R lE dressing intact
--- NOTE | 2019-12-18 03:00 | NUR ---
ANSWERED CALL LIGHT. 1 PA TO THE BATHROOM USING WALKER AND BACK TO BED. SCD BACK ON. BED ALARM ON FOR SAFETY.
--- NOTE | 2019-12-18 03:50 | NUR ---
CALL LIGHT ON. PATIENT WANTED TO BE UP DANGLE BY THE BED. CALL LIGHT IN REACH. INSTRUCTED TO CALL WHEN READY TO GO BACK LAY ON BED. PATIENT AGREED.
--- NOTE | 2019-12-18 03:54 | NUR ---
WENT IN TO THE ROOM AND CHECK IF SHE WANTS TO GO BACK LAY ON BED. PATIENT STATED ' like to sit more." PATIENT TURNED THE TV ON. BED ALARM ON FOR SAFETY.
--- NOTE | 2019-12-18 04:04 | NUR ---
in bed, O2 in place, IVF sl as it was dc'd by . continues to have generalized edema, scratches and bruising in different stages of healing.
--- NOTE | 2019-12-18 05:09 | NUR ---
Pt currently resting, O2 @L NC in place, no c/o sob, no sob with exertion noted when up to br. Back to bed. pleasant and coop. SL at this time. lege elevated, SCDS L leg, foot pump R leg, dressing intact. Generalized edema w/o changes. Pleasnt and coop, bruising and scabbing all over body in different stages of healing. CBG was 131, no coverage needed. Tolerating diet well
--- NOTE | 2019-12-18 07:39 | NUR ---
PATIENT LYING IN BED AWAKE. SCD'S AND FOOT PUMP ON. O2 @ 96% ON 2L NC. BED ALARM ON AND CALL LIGHT IN REACH.
--- NOTE | 2019-12-18 09:50 | NUR ---
PATIENT UP IN CHAIR. FINISHED 100% OF BREAKFAST. COMPLETED ASSESSMENT. PATIENT COMPLAINING OF DULL ACHING NECK PAIN, SUPPLIED HEAT PACK. PATIENT REQUESTED RETURNING TO BED. STAND AND PIVOT BACK TO BED WITH FWW. O2 AT 96% ON 2L NC. PATIENT AGREED TO SHOWER AFTER LUNCH. PATIENT TEARFUL, STATING SHE WANTS TO GO HOME. CALL LIGHT IN REACH, SCD'S IN PLACE. BED ALARM ACTIVATED.
--- NOTE | 2019-12-18 11:23 | NUR ---
PATIENT IN BED LYING ON SIDE. PATIENT STATES SHE IS FEELING SAD TODAY. REQUESTED A NICOTINE LOZENGE. ADMINISTERED MEDS PER ORDERS. SPOKE WITH PATIENT ABOUT PLAN FOR THE DAY, SHOWPEPITO, PT/OT THIS AFTERNOON. PAIN REPORTED 2/10 FROM SORE NECK. REPOSITIONED PATIENT FROM SIDE T O BACK. SCD'S IN PLACE. O2 94% 2L NC. CALL LIGHT IN REACH.
--- NOTE | 2019-12-18 11:52 | NUR ---
PT CALLED NURSES STATION FOR ASSISTANCE WITH RE-POSITIONING IN BED, AFTER ASSISTING TO RE-POSITION INTO THREE DIFFERENT POSITIONS PT DECIDED TO SIT AT SIDE OF BED FOR NOW, FRESH ICE WATER SET AT TABLE. BLANKET SET TO HER SHOULDERS PER HER REQUEST. NO FURTHER REQUESTS AT THIS TIME.
--- NOTE | 2019-12-18 13:38 | NUR ---
PATIENT SITTING UP IN CHAIR EATING LUNCH. SISTER IN ROOM. PATIENT SISTER REQUESTING TO SPEAK WITH NOTIFIED DR. WAGONER AND HE IS CURRENTLY UPDATING PTS SISTER OVER THE PHONE. TITRATING PATIENT TO 1L O2. SATS CURRENTLY SATS AT 95% ON 2L O2. CALL LIGHT IN REACH.
--- NOTE | 2019-12-18 15:12 | NUR ---
PATIENT UP TO SHOWER AND BACK TO BED, 2PA. LINENS CHANGED. NEW GOWN AND ATTENDS. CALL LIGHT IN REACH. NO FURTHER NEEDS AT THIS TIME.
--- NOTE | 2019-12-18 15:30 | NUR ---
PATIENT UP TO SHOWER. 2 PA. REMOVED DRESSING ON LLE FOR DRESSING CHANGE. APPLIES NEW DREDDING PER ORDERS. PATIET TOLERATED DRESSING CHANGE WELL. PT AMBULATED WELL TO SHOWER USING FWW, MOVING SLOW. CHANGED GOWN. ATTENDS IN PLACE. APPLIES LOTION TO FEET AND EXTREMITIES. PT ON 1L NC, SATS 94%. CONTINUING TO TITRATE APPROPRIATE. CALL LIGHT IN PLACE.
--- NOTE | 2019-12-18 18:26 | NUR ---
PATIENT SITTING ON EOB FINISHING DINNER. ASKING FOR HELP FINDING REMOTE TO TV. NO REPORTS OF PAIN. SATS AT 93% ON 2L NC. HELPED PATIENT WITH REPOSITIONING. CALL LIGHT IN REACH.
--- NOTE | 2019-12-18 20:25 | NUR ---
In bed, O2 NC 2L, CPOX in place sats 91-95%, no c/o sob. Helpts with repositioning. Numerous bruising over arms and L hip and Left leg and scabbed over areas over arms and legs in different stages of healing. Wound R leg wih small amount of ss drainage. wound improving.; no odor, dressing change done as per orders and covered with glory wrap
--- NOTE | 2019-12-18 20:30 | NUR ---
ASSISTED PRIMARY RN CHANGED WOUND DRESSING.
--- NOTE | 2019-12-19 00:12 | NUR ---
Pt resting, no resp distress, O2 NC inplace, call lihgt at bedside, bed alarm on for high fall risk precautions.
--- NOTE | 2019-12-19 01:44 | NUR ---
Up edge of bed, walked to cough, back to bed, tolerated well, no sob with exertion noted, O2 2l nc, CPOX inplace. Pt wanted to sleep on couch as she tought that the couch was bigger than the hosp bed, explained to her, was ok with explanation. Call sharon at bedside
--- NOTE | 2019-12-19 02:16 | NUR ---
O2 IN PLACE, NO RESP DISTRESS, EYES CLOSED, NO RESP DISTRESS, LEGS ELEVATED, HOB ELEVATED TO HER COMOFRT, CALL LIHGT AT BEDSIDE
--- NOTE | 2019-12-19 03:19 | NUR ---
PATIENT USED THE CALL LIGHT. 1 PA TO THE BATHROOM USING WALKER. PATIENT IS BACK IN BED. BED ALARM IS ON FOR SAFETY.
--- NOTE | 2019-12-19 03:41 | NUR ---
RESTING, EYES CLOSED, NO DISTRESS, O2 IN PLACE, REPOSITIONS SELF IN BED, SCDS OFF AT HER REQUESTS. NIURKA MCCORMACK. DRESSING R LEG IN PLACE. CALL LIGHT AT HANDS REACH. HOB ELEVATED TO HER COMFORT
--- NOTE | 2019-12-19 06:04 | NUR ---
Up to br with 1pa/fww, O2 2L NC, CPOX in place, 90-93%, denies sob. No sob noted w exertion, has tolerated walkd to br very well. Repositions sef in bed. Multiple bruises and scabs all over body from arms to toes, in different stages of healing. L leg scds in place. R leg foot pump in place. Dressing to R calf done earlier in shift, tolerated well. Was medicated with 1 Tylenol prior to dressing change, effective. Ocassional cough present. Using call light appropriately.
--- NOTE | 2019-12-19 09:14 | NUR ---
PT VERY SLEEPY THIS AM BUT AWAKENS EASILY TO VOICE. ORIENTED TO ALL ONCE AWAKE. SAT UP AT EDGE OF BED THIS MORNING AND ATE BREAKFAST. DENIES PAIN OR OTHER CONCERN AT THIS TIME. SATTING 98% ON 2LNC WHILE ASLEEP, WEANED TO 1LNC. PT REPORTS HAVING "PICKED" AT SCAB ON RIGHT FA CAUSING IT TO OPEN AND BLEED. APPLIED GAUZE AND COBAN. CALL LIGHT WITHIN REACH.
--- NOTE | 2019-12-19 09:20 | NUR ---
Spoke with Antonia. She is sitting up on edge of bed. Discussed where she would like to go on dc. Dr's note showed [facility]F, but not [facility]. Pt states she would go to [facility] if needed so her sister doesn't have to drive out of town. Pt does not want to go to SNF if she can go home with help from friends. She states she has not walked with PT yet, but does think she could care for self if needed.
--- NOTE | 2019-12-19 10:07 | NUR ---
PATIENT NEEDS OXYGEN TITRATED UP AFTER ACTIVITY FOR RECOVERY, PATIENT WA AT 84, WITH AN INCREASE FROM 1 TO 2 OF OXYGEN IT WENT BACK UP TO 92
--- NOTE | 2019-12-19 10:08 | NUR ---
PT UP TO BATHROOM ON ROOM AIR TRIAL, PT DESATURATION TO 80%, PLACED ON 2L OXYGEN AND RECOVERED IMMEDIATELY TO 93%, WILL TITRATE BACK TO 1 LITER WHEN TOLERATES.
--- NOTE | 2019-12-19 11:58 | NUR ---
PT SBA WITH WALKER TO RESTROOM. VOIDED WITHOUT DIFFICULTY. AMB BACK TO BED. RIGT LE WOUND DRESSING CHANGED AT THIS TIME. PT MIRNA WELL. WOUND BED WITH GOOD GRANULATION, BRIGHT RED, NO ESCHAR OR EXUDATE NOTED. REDRESSED PER ORDERS. CALL LIGHT WITHIN REACH.
--- NOTE | 2019-12-19 13:19 | NUR ---
PT RESTING IN BED ON R.SIDE. PT IS ALERT, AND SEEMED PLEASED THAT I STOPPED BY. PT USING O2 NC, BUT STATED SHE IS FEELING MUCH BETTER. NOTED VARIOUS SCABS ON ARMS AND LEGS. 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 WILL FOLLOW NEEDED
--- NOTE | 2019-12-19 13:19 | NUR ---
Returned to check on Antonia. She walked with PT, but became sob. Does wish to go the SNF on dc. H&P, ER notes, progress notes, PT eval, face sheet faxed to [facility].
--- NOTE | 2019-12-19 14:58 | NUR ---
PT CALLED FOR ASSISTANCE. PT REPORTS FEELING VERY ANXIOUS, ASSISTED TO SIT AT EDGE OF BED. NOTED PT HAD 02 OFF AND SATTING 85%. PLACED 2LNC BACK ON AND ENCOURAGED TO PRACTICE DEEP BREATHING. PT STATES "THIS BED IS UNCOCOMFORTABLE, THE SHEETS ARE UNCOMFORTABLE, I DON'T KNOW WHAT'S WRONG. I'M JUST UNCOMFORTABLE." THERAPEUTIC COMMUNICATION COMPLETED AND ADMINISTERED SCHEDULED GABAPENTIN, TYLENOL, AND NICOTINE LOZENGE. PT APPEARS MORE CALM AT THE END OF INTERATION. SATTING 95% ON 2LNC. LYING IN BACK IN BED NOW. CALL LIGHT WITHIN REACH.
--- NOTE | 2019-12-19 15:16 | NUR ---
Nurses notes, CM note, and PT note sent to T for today.
--- NOTE | 2019-12-19 15:53 | NUR ---
PT APPEARS TO BE SLEEPING SOUNDLY. SATTING 95% ON 2LNC. RESP EVEN AND UNLABORED.
--- NOTE | 2019-12-19 18:37 | NUR ---
PT LYING ON RIGHT SIDE APPEARS TO BE SLEEPING UPON ENTERING ROOM. AWOKE EASILY TO VOICE. PT DENIES PAIN OR OTHER CONCERN. SATTING LOW 90'S ON 2LNC. HAS NOT BEEN ABLE TO TOLERTATE ROOM AIR, DESATS TO LOW 80'S. ATE DINNER, MIRNA WELL. CALL LIGHT WITHIN REACH.
--- NOTE | 2019-12-19 19:28 | NUR ---
received report katalina day shift nurse. pt in bed, sleeping. on 2l of O2. appeared comfortable. no distress noted. will be back for assessment.
--- NOTE | 2019-12-19 20:00 | NUR ---
TOOK PT TO THE BATHROOM. SHE WALKED WITH HER WALKER WITH NC ON. VOIDED WITHOUT PROBLEMS. DENIED PAIN. TALKED TO THE PT ABOUT HER DISCHARGE AND HOW SHE FEELS ABOUT GOING TO [place]. PT STATED SHE THINKS IT WOULD BE GOOD FOR HER TO GET THERAPY AND SOME HELP UNTIL SHE WILL GET STRONGER. WENT BACK TO BED. REQUESTED SOME REST. SPO2 92% ON 2L OF O2 VIA NC.
--- NOTE | 2019-12-19 22:55 | NUR ---
OBSERVED APNIC EPISOD, PT'S SPO2 DROPPED DOWN TO 84% ON 1L OF O2. PUT ON 2L OF O2, SPO2 UP TO 95%.
--- NOTE | 2019-12-20 00:30 | NUR ---
PT LAYING ON HER RIGHT SIDE IN BED. EYES CLOSED, APPEARS ASLEEP. SPO2 93% ON 2L OF O2 VIA NC.
--- NOTE | 2019-12-20 02:33 | NUR ---
PT AMBULATED TO THE BATHROOM. USED A WALKER. VOIDED WITHOUT DIFFICULTIES. HAD A MEDIUM BM. CHANGED WET TO DRY DRESSING. WOUND'S BED LOOKS READ, MODERATE DISCHARGE NOTED. NO SMELL NOTED. PATIENT TO;ERATED WELL. BACK IN BED. WARM BLANKET WAS OFFERED. SPO2 94% ON 2L OF O2
--- NOTE | 2019-12-20 03:10 | NUR ---
pt in bed resting comfortably. scd in on not affected leg. bed in low position, call light in reach.
--- NOTE | 2019-12-20 04:24 | NUR ---
PT CALLED FOR HELP TO GO TO THE BATHROOM. ANBULATED WITH WALKER. VOIDED WITHOUT DIFFICULTIES. HAD ANOTHER MEDIUM BM. BACK TO BED. CALL LIGHT IN REACH, BED IN LOW POSITION.
--- NOTE | 2019-12-20 04:55 | NUR ---
PT APPEARS SLEEPY AND TIRED. DENIED PAIN DURING THIS SHIFT. OPENS HER EYES TO VOICE, ABLE TO FOLLOW COMMNANDS, ORIENTED X3. TALKED TO MARYCRUZ ABOUT HER DISCHARGE TO [facility], SHE STATED "IT WOULD BE GOOD TO GO THERE FOT THERAPY AND GET STRONGER'. HAD A COUPLE EPISODES OF DYSPNEA THIS NIGHT, SPO2 DROPPED BELOW 90% ON 2L OF O2 VIA NC. MAINTANING SPO2 92-94% RANGE. LUNG SOUND DIMINISHED BILATERALY. REMAINS ON PO VANTINE AND DOXYCYCLINE. BG 96, NO INSULIN NEEDED PER SLIDING SCALE. EDEMA 1+ ON UE BILATERALY, OCULAR EDENA NOTED WELL. WOUND CARE ON R CALF WAS PERFORMED. WET TO DRY DRESSING + ABD WERE CHANGED, PT TOLERATED WELL. WOUND BASE IS RED, NO ODOR NOTED. WRAPED WITH KERLEX. MODERATE AMOUNT OF SANGUINEOUS DISCHARGE WAS NOTED. AMBULATED WITH WAALKER TO THE BATHROOM TWICE DURING THIS SHIFT. HAD 2 MEDIUM BMS DURING THIS SHIFT.
--- NOTE | 2019-12-20 05:47 | NUR ---
PT AMBULATED TO THE BATHROOM. TOOK HER SCHEDULED MEDS WHIOLE WITH WATER. BACK TO BED.
--- NOTE | 2019-12-20 07:46 | NUR ---
Pt awake, a&ox4. Pt denies pain and or needs at this time. Personal supplies and call light within reach.
--- NOTE | 2019-12-20 08:03 | NUR ---
PATIENT AWAKE AND SITTING ON EDGE OF BED. ORDERED AN ENSURE FOR BREAKFAST. DOES NOT NEED ANYTHING ELSE AT THIS TIME. CALL LIGHT IN REACH
--- NOTE | 2019-12-20 08:40 | NUR ---
Spoke with Carolyn from [facility]. She was in and visited with Antonia. Wanting to know where she will go on dc and updated plans are for [facility] today. She is wanting to know if they can visit with Antonia at [facility] and let her know I will be calling them today and can find out. Will update Carolyn when I speak with Melva.
--- NOTE | 2019-12-20 10:00 | NUR ---
Spoke with Melva from [facility]. She is requesting orders. Notified Dr. Fraga has not seen pt at this time. I will try to get orders by 11:30. Asked if [facility] would be able to see pt for Peer to Peer support in their facility and she states this would be ok. They do not have transport, pt will need to go by taxi or van.
--- NOTE | 2019-12-20 11:07 | NUR ---
RIGHT CALF WET TO DRY DRESSING CHANGE COMPLETED PER DOC ORDER. PT TOLERATED DRESSING CHANGE WELL. SOAKED 4X4 WITH SALINE APPLIED TO WOUND BED, THEN ABD, THEN UNIQUE WRAP PLACED OVER DRESSING. GOOD PEDAL PULSE TO RIGHT LOWER EXT. WOUND BED BEEFY RED. SMALL AMOUND OF SAROSANG DRAINAGE ON OLD DRESSING.
[2019-12-20] MEDS ORDERED: ELIQUIS5 MG PO (11:27)
[2019-12-20] MEDS ORDERED: LEVOTHYROXINE112 MCG PO (11:28)
--- NOTE | 2019-12-20 12:31 | NUR ---
Orders, discharge, PASSR, Sidney faxed to Melva. Nurses updated and will schedule transport and send with portable 02 tank.
== END 2019-12-20 15:19 | DRG 907 ==
LOC: ED 00:26 → CCU 00:28 → MS 12-16 22:41
PROVIDERS: Colon & Rectal Surgery; ADMIT Internal Medicine
PROC: 0KBS0ZZ Excision of Right Lower Leg Muscle, Open Approach (ICD-10-PCS; principal; 2019-12-16 09:45)
DX: T43.621A Poisoning by amphetamines, accidental (unintentional), initial encounter (principal); J96.01 Acute respiratory failure with hypoxia; G92 Toxic encephalopathy; J13 Pneumonia due to Streptococcus pneumoniae; J15.9 Unspecified bacterial pneumonia; J96.02 Acute respiratory failure with hypercapnia; L97.213 Non-pressure chronic ulcer of right calf with necrosis of muscle; F33.9 Major depressive disorder, recurrent, unspecified; F15.129 Other stimulant abuse with intoxication, unspecified; G47.33 Obstructive sleep apnea (adult) (pediatric); I48.0 Paroxysmal atrial fibrillation; E11.22 Type 2 diabetes mellitus with diabetic chronic kidney disease; I12.9 Hypertensive chronic kidney disease with stage 1 through stage 4 chronic kidney disease, or unspecified chronic kidney disease; N18.9 Chronic kidney disease, unspecified; E83.42 Hypomagnesemia; I25.2 Old myocardial infarction; J44.9 Chronic obstructive pulmonary disease, unspecified; E03.9 Hypothyroidism, unspecified; F17.200 Nicotine dependence, unspecified, uncomplicated; Z88.8 Allergy status to other drugs, medicaments and biological substances; Z95.1 Presence of aortocoronary bypass graft; Z79.899 Other long term (current) drug therapy; Z79.84 Long term (current) use of oral hypoglycemic drugs; Z79.82 Long term (current) use of aspirin
CPT/HCPCS: 36415; 36600; 51701; 51702; 71045; 74018; 80048; 80053; 81001; 82803; 83036; 83605; 83735; 84134; 84439; 84443; 85025; 85651; 87040; 87070; 87075; 87077; 87186; 87205; 93005; 93010; 93306; 94002; 94660; 94760; 94762; 97116; 97162; 97165; 99285-25; J0330; J0696; J1100; J1630; J1650; J1815; J2001; J2060; J2250; J2405; J2704; J2795; J3010; J3360; J3370; J3475; J7121; Q0177; Q9957